=== PATIENT | female | born 1955 | race Caucasian/White ===

== ENCOUNTER 2023-07-30 10:31 | Outpatient (REF) | payer OTHER, MEDICARE, SELFPAY ==
[2023-07-30 14:23] LABS: Alanine Aminotransferase 23 U/L (0-31); Albumin Level 4.1 g/dL (3.5-5.0); Alkaline Phosphatase 85 U/L (39-117); Anion Gap 14 (12-20); Aspartate Amino Transferase 40 U/L (5-31); Bilirubin Direct 0.3 mg/dL (0.0-0.5); Bilirubin Total 0.7 mg/dL (0.0-1.0); Blood Urea Nitrogen 15 mg/dL (9-16); Carbon Dioxide 27 mmol/L (22-29); Chloride 103 mmol/L (96-108); Cholesterol 162 mg/dL (<200); Estimated Glomerular Filt Rate > 60; Glucose Fasting 86 mg/dL (60-99); HDL Cholesterol 78 mg/dL (>40); LDL Cholesterol Calculated 65 mg/dL (<100); Potassium 3.9 mmol/L (3.3-5.1); Sodium 140 mmol/L (135-145); Total Protein 7.4 g/dL (6.5-8.0); Triglycerides 99 mg/dL (<150)
== END 2023-07-30 10:32 | disposition home or self-care (01) ==
LOC: HO.CHCLDS 10:31
PROVIDERS: Visit Provider Student in an Organized Health Care Education/Training Program
DX: E78.5 Hyperlipidemia, unspecified (principal)
CPT/HCPCS: 36415; 80048; 80061; 80076

== ENCOUNTER 2024-03-11 11:31 | Outpatient (REF) | payer MEDICARE, SELFPAY ==
[2024-03-11 15:21] LABS: Alanine Aminotransferase 17 U/L (0-31); Albumin Level 3.9 g/dL (3.5-5.0); Alkaline Phosphatase 72 U/L (39-117); Anion Gap 14 (12-20); Aspartate Amino Transferase 32 U/L (5-31); Bilirubin Direct 0.2 mg/dL (0.0-0.5); Bilirubin Total 0.3 mg/dL (0.0-1.0); Blood Urea Nitrogen 12 mg/dL (9-16); Calcium 9.3 mg/dL (8.4-10.2); Carbon Dioxide 29 mmol/L (22-29); Chloride 102 mmol/L (96-108); Cholesterol 146 mg/dL (<200); Estimated Glomerular Filt Rate > 60; Glucose Random 126 mg/dL (60-115); HDL Cholesterol 75 mg/dL (>40); LDL Cholesterol Calculated 54 mg/dL (<100); Potassium 3.6 mmol/L (3.3-5.1); Sodium 141 mmol/L (135-145); Total Protein 7.5 g/dL (6.5-8.0); Triglycerides 86 mg/dL (<150)
== END 2024-03-11 11:32 | disposition home or self-care (01) ==
LOC: HO.CHCLDS 11:31
PROVIDERS: Visit Provider Student in an Organized Health Care Education/Training Program
DX: F10.20 Alcohol dependence, uncomplicated (principal)
CPT/HCPCS: 36415; 80048; 80061; 80076

== ENCOUNTER 2024-10-11 12:42 | Outpatient (REF) | payer MEDICARE, SELFPAY ==
[2024-10-11 14:17] LABS: MANUAL DIFF FLAG NO
[2024-10-11 14:29] LABS: Basophils Absolute Auto 0.1 X10*3/uL (0.0-0.2); Basophils Percent Auto 1.6 % (0-2); Eosinophils Percent Auto 0.4 % (0-4); Hematocrit 29.5 % (37.0-47.0); Hemoglobin 9.1 g/dl (12.0-16.0); Imm Gran Abs Auto 0.02 X10*3/uL (0.00-0.03); Imm Gran Pct Auto 0.3 % (0.0-0.4); Lymphocytes Absolute Auto 1.2 X10*3/uL (1.2-4.9); Mean Corpuscular HGB Conc 30.8 g/dl (31.0-35.0); Mean Corpuscular Hemoglobin 22.4 pg (27.0-33.0); Mean Corpuscular Volume 72.5 fL (80.0-98.0); Mean Platelet Volume 10.5 fL (9.4-12.3); Monocytes Percent Auto 12.5 % (2-11); Neutrophils Absolute Auto 5.4 x10*3/uL (2.0-8.3); Neutrophils Percent Auto 70.2 % (45-73); Platelet Count 394 X10*3/uL (160-400); Red Blood Count 4.07 X10*6/uL (4.20-5.50); Red Cell Distribution Width 18.1 % (11.0-16.0); White Blood Count 7.7 X10*3/uL (4.8-10.8)
[2024-10-11 15:03] LABS: Alanine Aminotransferase 20 U/L (0-31); Albumin Level 3.6 g/dL (3.5-5.0); Alkaline Phosphatase 77 U/L (39-117); Anion Gap 14 (12-20); Aspartate Amino Transferase 45 U/L (5-31); Bilirubin Total 0.3 mg/dL (0.0-1.0); Blood Urea Nitrogen 12 mg/dL (9-16); C Reactive Protein < 0.10 mg/dL (< or = 0.50); Calcium 9.1 mg/dL (8.4-10.2); Carbon Dioxide 31 mmol/L (22-29); Chloride 92 mmol/L (96-108); Estimated Glomerular Filt Rate > 60; Glucose Random 98 mg/dL (60-115); Iron 11 mcg/dL (30-160); Lactate Dehydrogenase 209 U/L (122-220); Percent Iron Saturation 3 % (15-50); Potassium 3.6 mmol/L (3.3-5.1); Sodium 133 mmol/L (135-145); TSH reflex Free T4 0.83 uIU/mL (0.32-4.0); Total Iron Binding Capacity 337 mcg/dL (228-428); Total Protein 6.7 g/dL (6.5-8.0); Unsaturated Iron Binding 326 ug/dL
[2024-10-11 15:09] LABS: Erythrocyte Sedimentation Rate 9 MM/HR (0-20)
[2024-10-11 15:22] LABS: Folate 9.2 ng/mL (> or = 4.0); Vitamin B12 > 2000 pg/mL (200-900)
[2024-10-12 08:29] LABS: HIV AB/AG Nonreactive (Nonreactive); HIV Num 1 0.05 S/CO (0.00-0.99)
== END 2024-10-11 12:43 | disposition home or self-care (01) ==
LOC: HO.CHCLDS 12:42
PROVIDERS: Visit Provider Family Medicine
DX: R63.4 Abnormal weight loss (principal); R62.7 Adult failure to thrive; M81.0 Age-related osteoporosis without current pathological fracture; R13.10 Dysphagia, unspecified
CPT/HCPCS: 36415; 80053; 82306; 82607; 82746; 83540; 83615; 84443; 85025; 85652; 86140; 87389

== ENCOUNTER 2024-12-29 09:16 | Outpatient (REF) | payer MEDICARE, SELFPAY ==
--- NOTE | ~2024-12-29 | FL_ITS ---
EXAMINATION: XR FLUOROSCOPY UPPER GI WITH AIR CLINICAL INFORMATION: Weight loss. COMPARISON: None TECHNIQUE: Fluoroscopic air contrast upper GI examination was performed utilizing standard techniques with thin and thick barium and effervescent granules. Numerous spot images were obtained. FINDINGS: Severe kyphosis of the spine is present. There is osteopenia with multiple chronic compression deformities. There is an eggshell type calcification in the region of the superior medial liver, uncertain in etiology. Dual and single contrast images of the esophagus demonstrate a normal caliber. There is an irregular short segment linear vertically oriented filling defect in the midesophagus. Just proximal to this, there is an inferiorly oriented mucosal ulceration. In addition there are multiple foci of contrast pooling in the mid and distal esophagus that may represents ulcerations. Esophageal peristalsis is moderately disorganized. No evidence of hiatus hernia identified. No significant gastroesophageal reflux was seen during the course of the examination and on reflux views. Dual contrast and single contrast images of the stomach demonstrate an elongated stomach with a normal contour. The gastric rugal folds have a thickened appearance suggestive of gastritis. No masses or ulcerations are seen. Contrast freely passed into the gastric antrum and duodenal bulb without delay. Single and air-contrast images of the duodenal bulb demonstrate no abnormality. The duodenal sweep has a normal appearance, course, and mucosal fold appearance. The imaged proximal jejunum has a normal fold pattern and caliber. FLUOROSCOPY TIME: 5 minutes 23 seconds Number of Spot Images: 5 Number of Cine: 17 DOSE AREA PRODUCT: 1170 uGy-m2 (microgray-meter squared) FL/FL barium swallow with air IMPRESSION: 1. Limited examination due to patient's severe kyphosis, and inability to tolerate positioning for the exam. 2. Irregular linear vertically oriented filling defect is seen in the midesophagus of unknown etiology. An ulcerated mucosal mass cannot be excluded. An unusual presentation of gastritis or thrush is also a possibility. Just proximal to this, there is a small dorsally oriented mucosal/submucosal ulceration. 3. Multiple focal areas of contrast pooling in the mid and distal esophagus that may represent ulcerations. 4. Elongated stomach. The gastric rugal folds have a thickened appearance, suggestive of gastritis. 5. Moderate esophageal dysmotility. 6. Given the above findings, EGD is recommended. This procedure was performed by En Trivedi PA-C, and supervised by Dr. Doe Electronically signed by: Ajith Doe MD 12/30/2024 09:07 AM KERI AYALA
--- OUTSIDE RECORDS SUMMARY | 2024-12-29 10:17 | XMS_ITS | Encounter Summary ---
Author Organization 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 Role Phone Becca Forbes MD Primary Care Provider [phone] Reason for Visit * Reason Onset Date Comments Med Refill 12/24/2024 Encounter Details Date Type Department Care Team ([facility] st Contact Info) Description 12/24/2024 Refill [facility] [address] [place] [address] Becca Forbes MD [address] [place], [place] [id number] Social History Tobacco Use Types Packs/Day Years Used Date Smoking Tobacco: Every Day Cigarettes Smokeless Tobacco: Never Alcohol Use Standard Drinks/Week Comments Yes 12 (1 standard drink = 0.6 oz pu re alcohol) Housing Stability Answer Date Recorded What is your housing situation today? I have sulema ahumada 12/27/[address] you li ve. Do you have problems with any of the following? Not on file 12/27/2024 Food Insecurity Answer Date Recorded Within the past 12 months, y ou worried that your food would run out before you got money to buy more: Never True 09/11/2023 Within the past 12 months,th e food you bought just didn't last and you didn't have enough money to get more: Never True Transportation Answer Date Recorded In the past 12 months, has l ack of transportation kept you from medical appts, meetings, work or from getting things needed for daily living? No 09/11/2023 Utilities Answer Date Recorded In the past 12 months, has t he electric, gas, oil or water company threatened to shut off services in your home? No 09/11/2023 Comments No Sex and Gender Information Value Date Recorded Sex Assigned at Female 09/16/2022 10:27 AM EDT Legal Sex Female 10:27 AM EDT Gender Identity Female 09/16/2022 10:27 AM EDT Sexual Orientation Straight 09/16/2022 10 :27 AM EDT documented as of this encounter Miscellaneous Notes * Telephone Encounter - Alpesh Apodaca - 12/24/2024 3:31 PM EST TC from pt requesting medication refill. Medications needing refill : omeprazole (PriLOSEC) [address] capsule atorvastatin (Lipitor) 40 MG tablet cholecalciferol (Vitamin D-3) 25 MCG tablet To be sent to: [facility] - [place] - [address] [place] [address] documented in this encounter Plan of Treatment Upcoming Encounters Date Type Department Care Team (Late st Contact Info) Description 01/06/2025 9:30 AM EST Telemedicine [facility] [address] [place] [address] [place] [address] documented as of this encounter Visit Diagnoses Not on filedocumented in this encounter Care Teams Roof Cement And Paint Maker Relationship Specialty Start Date End Date Becca Forbes MD [address] [place] [address] PCP - General Family Medicine 06/30/20 documented as of this encounter
--- OUTSIDE RECORDS SUMMARY | 2024-12-29 10:17 | XMS_ITS | Clinical Summary ---
Author Organization [facility] Address [address] [place] [address] Phone Care Team Providers Care Heddler Name Role Phone SHARAD MARCH Primary Care Provider [phone] [facility] Unavailable [phone] Reason for Visit and Chief Complaint Established Patient Plan of Treatment Pending Tests Order Diagnosis Results Due Ordering P rovider Follow Up - Appointment 6 weeks Colles' fx left radius, subs for clos fx w routn heal 02/04/23 Teddy Kwon MD Last Documented On 3 10:06AM ; [facility] Assessments Includes: Assessments from this encounter No Assessments Recorded Medical Equipment - Implanted Devices Includes: Current Devices No Medical Equipment Recorded Medications Includes: Medications discussed during this encounter and other current Medications Current Medications (continue as prescribed) percocet [MANUAL] Oral Tablet 04/03/2023 Provider: Diagnosis: Last Documented On 3 10:57AM By Kamran Campa ; [facility] Medications Administered Includes: Administered Medications from this encounter No Administered Medications Recorded Vital Signs Includes: Vital Signs from this encounter Vital Name 02/04/2023 09:55A Blood Pressure Sitting (mmHg) 141/94 Pulse Rate-Sitting (bpm) 41 Temp-Temporal 98.1 Height (in) 59 Weight (lb) 75.8 Body Mass Index 15.3 Body Surface Area 1.2 Oxygen Saturation (%) 89 Last Documented: On 02/04/2023 9:56AM ; [facility] Results Includes: Results discussed during this encounter No Results Recorded For Specified Dates History of Present Illness Includes: History of Present Illness from this encounter No History of Present Illness Recorded Social History No Social History Recorded - Smoking Status Unknown Medical History Includes: Medical History addressed during this encounter No Medical History Recorded Family History Includes: Family History addressed during this encounter No Family History Recorded Review of Systems Includes: Review of Systems from this encounter No Review of Systems Recorded Mental Status Includes: Mental Status from this encounter No Mental Status Recorded Functional Status Includes: Functional Status from this encounter No Functional Status Recorded Physical Exam Includes: Physical Exam from this encounter Allergies Includes: Active Allergies No Known Allergies Encounters Encounter Provider Location Date Check-In Time Check-Out Time Diagnosis Established Patient [facility]won [facility] 02/05/20 10:00AM 10:09AM Insurance Includes: Active Insurance Policies Plan Name Member ID Group # Subscriber Relationship Effect ruma Dates 1 - [employer] [id number] Esperanza Talamantes Self 2 - Medicare Part [place] [id number] Esperanza Talamantes Self 3 - [facility] [id number] Esperanza Pastor Clinical Notes Includes: Clinical Notes from this encounter * Progress note Date Encounter Last Documented by 02/04/2023 Established Patient Last anthony vergara on 02/04/2023; 10:06 AM, Teddy Kwon MD; [facility] Current Medication - None Allergies - No Known Allergies Physical Findings - Vitals taken 02/04/2023 09:55 am BP-Sitting 141/94 mmHg Pulse Rate-Sitting 41 bpm Temp-Temporal 98.1 F Height 59 in Weight 75 lbs 12.8 oz Body Mass Index 15.3 kg/m2 Body Surface Area 1.2 m2 Oxygen Saturation 89 % Chief complaint: Follow-up fracture left distal radius and ulna History of Present Illness: This is a 67-year-old woman who was treated nonsurgically for a fracture of her left distal radius and ulna sustained on 10/09/2022. She was last seen on 12/23/2022. Her splint was discontinued at that time. I prescribed occupational therapy to assist with range of motion and advised her to be assertive with those exercises. She was quite stiff at that time. She has no complaints today. She presents with her daughter. She reports that she is going to physical therapy. I still think she could be more aggressive with her range of motion exercises. Physical exam: She is still fairly stiff but has improved quite a bit since the last visit. Today after some gentle stretching she is able to achieve almost full flexion of her digits. Her wrist extension is now about 25 degrees with flexion 45 degrees, supination 70 degrees, and pronation 60 degrees. Imaging: None today Impression: Fracture left distal radius and ulna Plan: I encouraged the patient to be aggressive with her range of motion exercises and to continue with her physical therapy. I advised her daughter to attend therapy with her so that she can help with the range of motion exercises at home. I asked the patient to return in 6 weeks for reexamination of her wrist. No radiographs will be necessary. Plan StartCited - Shon fx left radius, subs for yanick fx w routn heal Follow Up/Appointment: 6 weeks EndCited
--- OUTSIDE RECORDS SUMMARY | 2024-12-29 10:17 | XMS_ITS ---
Author Name Reji FRANCESCA MS. Xiao Tripathi Address [address] [place] [address] Phone [phone] [facility] Care Team Providers Care Valve Tester Name Role Phone Xiao Mendoza Unavailable [phone] Unavailable Unavailable Unavailable Reason for Referral Not Available Allergies, adverse reactions, alerts Allergen Type Reaction Severity Status Onset Date [place] Pass[place] Fruit OS Allergy to substance (disorder) Lip edema, facial edema Unknown Active N/A Propranolol Allergy to substance (disorder) Yeast infection w/ blistering Unknown Active N/A History of medication use Medication Class Instructions Start Date End Date Omeprazole 20 mg Cap delayed rel TAKE TWO CAPSULES EVERY DAY BEFORE MEALS 2022-03-06 No Data Available Alendronate Sodium 70 mg Tab TAKE 1 TABL ET ONCE A WEEK WITH 6 TO 8 OZ OF WATER 30 MINUTES BEFORE FIRST FOOD OF THE DAY. DO NOT LIE DOWN FOR 30 MINUTES. 2021-12-06 No Data Available SM All Day Allergy Relief 10 mg Tab TAKE ONE TABLET DAILY 2021-08-09 No Data Available MULTIVITAMIN TABLET TAKE ONE TABLET DAILY 2021-12-06 No Data Available Symbicort 80-4.5 MCG/ACT Aerosol INHALE TWO PUFFS TWICE DAILY IN THE MORNING AND AT BEDTIME, RINSE MOUTH AFTER USE 2022-07-18 2023-07-25 Albuterol Sulfate HFA 108 (9 0 Base) MCG/ACT Aerosol Solution INHALE TWO PUFFS EVERY 4 HOURS NEEDED FOR WHEEZING 2022-01-23 No Data Available ascorbic acid (vitamin C) 25 0 mg tablet TAKE ONE TABLET TWICE DAILY 2022-01-23 No Data Available Aspirin Low Dose 81 mg Tab delayed rel TAKE ONE TABLET DAILY 2022-07-18 No Data Available Atorvastatin Calcium 40 mg Tab TAKE ONE TABLET BY MOUTH EVERY DAY 2022-07-17 No Data Available cholecalciferol (vitamin D3) 25 mcg (1,000 unit) tablet TAKE ONE TABLET DAILY 2022-07-18 No Data Lisa ilable cyanocobalamin (vit B-12) 1,000 mcg tablet TAKE ONE TABLET DAILY 2022-07-18 No Data Available Aspirin EC 81 mg Tab delayed rel take 1 tablet by mouth daily 2022-12-17 No Data Available Lidocaine 5 % Patch 1 patch topically to affected area daily remove after 12 hours PRN Pain 2022-12-17 No Data Available Capsaicin 0.025 % Crm USE topically N EEDED FOR muscle PAIN 2023-02-11 No Data Available Acetaminophen-Codeine 120/12 mg/5ML Solution TAKE FIVE ml's BY MOUTH TWICE DAILY 2023-03-13 No Data Available M-PAP 160 mg/5ML Liquid TAKE 15 ml's BY MOUTH TWICE DAILY 2023-03-13 No Data Available Daily-Lora Tab TAKE ONE TABLET DAILY 2023-01-17 No D eitan Available Alclometasone Dipropionate 0.05 % Crm 1 application topically to affected area 2 times per day 2023-07-25 No Data Available Symbicort 160-4.5 MCG/ACT Aerosol Inhalation inhale 2 puffs by mouth twice daily 2023-03-21 No Data Available Ferrous Gluconate 324 (37.5 Fe) MG Tab TAKE ONE TABLET EVERY MORNING WITH BREAKFAST 2024-10-12 No Data Available Silver sulfADIAZINE 1 % Crm APPLY TO THE AFFECTED AREA(S) TWICE DAILY 2024-12-27 No Data Available Problem List Problem Status Onset Date Resolved Date Peripheral vascular disease, unspecified Active 2022-12-17 N/A H/O malignant neoplasm of breast Active N/A H/O fracture Active 2022-12-17 N/A Underweight Resolved 2022-12-19 2023-12-05 Protein calorie malnutrition Inactive 2022-12-19 N/A History of alcoholism/alcohol abuse Active 12-20 N/A Absence of toe Active 2023-12-12 N/A Rheumatoid arthritis Active 2024-11-26 N/A Scoliosis and Acquired kyphosis Active 2024-11-17 0 N/A Vitamin B12 deficiency neuropathy Active 2024-11 N/A 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 2024-11-26 N/A H/O deep venous thrombosis Active 2022-12-17 N /A GERD (gastroesophageal reflux disease) Active 09-12-30 N/A Hyperlipidemia Active 2022-12-17 N/A Advance directive discussed with patient Active 2024-11-26 N/A Age related osteoporosis Active 2022-12-17 N/A Chronic obstructive pulmonary disease, unspecified Act ruma 2022-12-17 N/A Protein malnutrition & Adult failure to thrive and 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 Active 2024-11-26 N/A Other problems related to [facility] facilities and other health care Active 2024-11-26 N/A Pressure ulcer of coccygeal region Active 1-10 N/A Encounters Encounters Type Facility Date of Service Diagnosis/Co mplaint New patient,40-59min; chronic exacerbation, 2 stable chronic or 1 acute illness add add modifier 95 for video (do not use for phone, instead use [id number]) [facility]22 Age-related osteoporosis without current pathological fractureHyperlipidemia, unspecifiedGastro-esophageal reflux disease without esophagitisPersonal history of malignant neoplasm of breastPeripheral vascular disease, unspecifiedPersonal history of other venous thrombosis and embolismChronic obstructive pulmonary disease, unspecifiedNicotine dependence, unspecified, uncomplicatedPersonal history of (healed) traumatic fractureUnderweightUnspecified protein-calorie malnutritionBody mass index (BMI) 19 or less, adultAlcohol dependence, in remission New patient,40-59min; chronic exacerbation, 2 stable chronic or 1 acute illness add add modifier 95 for video (do not use for phone, instead use [id number]) [facility] [place] New patient,40-59min; chronic exacerbation, 2 stable chronic or 1 acute illness add add modifier 95 for video (do not use for phone, instead use [id number]) [facility] [place] 12/[place]/20[place] New patient,40-59min; chronic exacerbation, 2 stable chronic or 1 acute illness add add modifier 95 for video (do not use for phone, instead use [id number]) [facility] [place] New patient,40-59min; chronic exacerbation, 2 stable chronic or 1 acute illness add add modifier 95 for video (do not use for phone, instead use [id number]) [facility] ([place]17/[place] New patient,40-59min; chronic exacerbation, 2 stable chronic or 1 acute illness add add modifier 95 for video (do not use for phone, instead use [id number]) [facility] [place] New patient,40-59min; chronic exacerbation, 2 stable chronic or 1 acute illness add add modifier 95 for video (do not use for phone, instead use [id number]) [facility] [place]/20[place] New patient,40-59min; chronic exacerbation, 2 stable chronic or 1 acute illness add add modifier 95 for video (do not use for phone, instead use [id number]) [facility] [place]/2022 No Data Available [facility] [place]2023 Age-related osteoporosis without current pathological fractureHyperlipidemia, unspecifiedGastro-esophageal reflux disease without esophagitisPersonal history of malignant neoplasm of breastPeripheral vascular disease, unspecifiedPersonal history of other venous thrombosis and embolismChronic obstructive pulmonary disease, unspecifiedNicotine dependence, unspecified, uncomplicatedPersonal history of (healed) traumatic fractureUnderweightUnspecified protein-calorie malnutritionAlcohol dependence, in remissionBody mass index (BMI) 19 or less, adult No Data Available [facility] Data [place] [facility] Data Available [facility] Data Available [facility] No Data Available [facility] No Data Available [facility] No Data Available [facility]2023 Age-related osteoporosis without current pathological fractureHyperlipidemia, unspecifiedGastro-esophageal reflux disease without esophagitisPersonal history of malignant neoplasm of breastPeripheral vascular disease, unspecifiedPersonal history of other venous thrombosis and embolismChronic obstructive pulmonary disease, unspecifiedNicotine dependence, unspecified, uncomplicatedPersonal history of (healed) traumatic fractureUnderweightUnspecified protein-calorie malnutritionBody mass index (BMI) 19 or less, adultAlcohol dependence, in remission No Data Available [facility] [place] 07[place]2023 No Data Available [facility] [place]2023 No Data Available [facility] [place] No Data Available [facility] [place] No Data Available [facility] [place] No Data Available [facility] [place]2023 Peripheral vascular disease, unspecifiedChronic obstructive pulmonary disease, unspecifiedUnspecified protein-calorie malnutritionAlcohol dependence, in remissionAge-related osteoporosis without current pathological fractureHyperlipidemia, unspecifiedGastro-esophageal reflux disease without esophagitisPersonal history of malignant neoplasm of breastPersonal history of other venous thrombosis and embolismNicotine dependence, unspecified, uncomplicatedPersonal history of (healed) traumatic fractureUnderweight No Data Available [facility] [place] 09[place]03[place]2023 No Data Available [facility] [place]2023 Age-related osteoporosis without current pathological fractureHyperlipidemia, unspecifiedGastro-esophageal reflux disease without esophagitisPersonal history of malignant neoplasm of breastPeripheral vascular disease, unspecifiedPersonal history of other venous thrombosis and embolismChronic obstructive pulmonary disease, unspecifiedNicotine dependence, unspecified, uncomplicatedPersonal history of (healed) traumatic fractureUnderweightUnspecified protein-calorie malnutritionAlcohol dependence, in remissionOther problems related to medical facilities and other health care No Data Available [facility] [place]2023 No Data Available [facility] [place] No Data Available [facility] [place]20[place] Estab. patient 30-39min; chronic exacerbation, 2 stable chronic or 1 acute illness add add modifier 95 for video, (do not use for phone, instead use [id number]) [facility] [place]2023 Gastro-esophageal reflux disease without esophagitisPeripheral vascular disease, unspecifiedPersonal history of other venous thrombosis and embolismAlcohol dependence, in remissionChronic obstructive pulmonary disease, unspecifiedNicotine dependence, unspecified, uncomplicatedPersonal history of (healed) traumatic fracture Estab. patient 30-39min; chronic exacerbation, 2 stable chronic or 1 acute illness add add modifier 95 for video, (do not use for phone, instead use [id number]) [facility] [place]20[place] Estab. patient 30-39min; chronic exacerbation, 2 stable chronic or 1 acute illness add add modifier 95 for video, (do not use for phone, instead use [id number]) [facility] [place]/2023 Estab. patient 30-39min; chronic exacerbation, 2 stable chronic or 1 acute illness add add modifier 95 for video, (do not use for phone, instead use [id number]) [facility] [place]2023 Estab. patient 30-39min; chronic exacerbation, 2 stable chronic or 1 acute illness add add modifier 95 for video, (do not use for phone, instead use 51525-36) [facility] [place] 12[place]05/2023 Estab. patient 30-39min; chronic exacerbation, 2 stable chronic or 1 acute illness add add modifier 95 for video, (do not use for phone, instead use [id number]) [facility] [place] Estab. patient 30-39min; chronic exacerbation, 2 stable chronic or 1 acute illness add add modifier 95 for video, (do not use for phone, instead use 23431-53) [facility] [place] Estab. patient 30-39min; chronic exacerbation, 2 stable chronic or 1 acute illness add add modifier 95 for video, (do not use for phone, instead use [id number]) [facility] [place] Estab. patient 20-29min; 1 stable chronic or 2 minor; add add modifier 95 for video, modifier 93 for phone [facility] [place] 11/26/2024 Age-related osteoporosis without current pathological fractureHyperlipidemia, unspecifiedGastro-esophageal reflux disease without esophagitisPersonal history of malignant neoplasm of breastPeripheral vascular disease, unspecifiedPersonal history of other venous thrombosis and embolismChronic obstructive pulmonary disease, unspecifiedNicotine dependence, unspecified, uncomplicatedPersonal history of (healed) traumatic fractureAlcohol dependence, in remissionAcquired absence of other toe(s), unspecified sidePressure ulcer of sacral region, unspecified stageUnspecified protein-calorie malnutritionAdult failure to thrive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Deficiency of other specified B group vitaminsSubac comb degeneration of spinal cord in dis classd elswhrPolyneuropathy in diseases classified elsewhereScoliosis, unspecifiedUnspecified kyphosis, site unspecifiedRheumatoid arthritis, unspecifiedOther problems related to medical facilities and other health care Estab. patient 20-29min; 1 stable chronic or 2 minor; add add modifier 95 for video, modifier 93 for phone [facility] Estab. patient 20-29min; 1 stable chronic or 2 minor; add add modifier 95 for video, modifier 93 for phone [facility]/26/20[place] Estab. patient 20-29min; 1 stable chronic or 2 minor; add add modifier 95 for video, modifier 93 for phone [facility]/26[place]20[place] Estab. patient 20-29min; 1 stable chronic or 2 minor; add add modifier 95 for video, modifier 93 for phone [facility]/26/20[place] Estab. patient 20-29min; 1 stable chronic or 2 minor; add add modifier 95 for video, modifier 93 for phone [facility]/26/2024 Estab. patient 20-29min; 1 stable chronic or 2 minor; add add modifier 95 for video, modifier 93 for phone [facility]/26/20[place] Estab. patient 20-29min; 1 stable chronic or 2 minor; add add modifier 95 for video, modifier 93 for phone [facility]/26/2024 Estab. patient 20-29min; 1 stable chronic or 2 minor; add add modifier 95 for video, modifier 93 for phone [facility] [place]/26/2024 Estab. patient 10-29min; 1 minor problem; add add modifier 95 for video, modifier 93 for phone [facility] [place] 12[place]/2024 Age-related osteoporosis without current pathological fractureOther problems related to medical facilities and other health careHyperlipidemia, unspecifiedGastro-esophageal reflux disease without esophagitisPersonal history of malignant neoplasm of breastPeripheral vascular disease, unspecifiedPersonal history of other venous thrombosis and embolismChronic obstructive pulmonary disease, unspecifiedNicotine dependence, unspecified, uncomplicatedPersonal history of (healed) traumatic fractureAlcohol dependence, in remissionAcquired absence of other toe(s), unspecified sidePressure ulcer of sacral region, unspecified stageUnspecified protein-calorie malnutritionAdult failure to thrive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Deficiency of other specified B group vitaminsSubac comb degeneration of spinal cord in dis classd elswhrPolyneuropathy in diseases classified elsewhereScoliosis, unspecifiedUnspecified kyphosis, site unspecifiedRheumatoid arthritis, unspecifiedBody mass index (BMI) 19 or less, adult Vital Signs Date of Collection Vitals 2022-12-17 13:41:03 Height - 147.32 cmWe ight - 33.57 kgBody Mass Index (BMI) - 15.47 kg/m2 2023-06-09 13:19:27 Height - 142.24 cmWe ight - 31.3 kgBody Mass Index (BMI) - 15.47 kg/m2BP Diastolic - 72.0 mm[Hg]BP Systolic - 126.0 mm[Hg]O2 % BldC Oximetry - 99.0 %Pain Scale - 0.0 {score} 2023-07-25 09:02:28 BP Diastolic - 72.0 mm[Hg]BP Systolic - 126.0 mm[Hg]Pain Scale - 0.0 {score} 2023-12-05 07:47:06 Height - 129.54 cmWe ight - 33.57 kgBody Mass Index (BMI) - 20.0 kg/m2Pain Scale - 8.0 {score} 2024-11-26 07:25:29 Height - 149.86 cmWe ight - 27.22 kgBody Mass Index (BMI) - 12.12 kg/m2BP Diastolic - 80.0 mm[Hg]BP Systolic - 137.0 mm[Hg]Pain Scale - 8.0 {score} 2024-12-28 12:24:29 Height - 129.54 cmWe ight - 27.67 kgBody Mass Index (BMI) - 16.49 kg/m2 Social History Social History Social History Observation Description Effec tive Time Current Smoking Status Current every day smoker 2024-12-29 Sex Female History of Procedures Procedures Service Procedure code Service date Servicing provider Phone# New patient,40-59min; chronic exacerbation, 2 stable chronic or 1 acute illness add add modifier 95 for video (do not use for phone, instead use [id number]) 13521 2022-12-17 No Data Available No Data Availa ble Pain Assessment - NO pain present (1126F) 1126F 2022-12-17 No Data Available No Data A vailable Medication List Documented (1159F) 1159F 2022-12-17 No Data Available No Data Lisa ilable Medication Review by prescribing provider or pharmacist documented (1160F) 1160F 2022-12-17 No Data Available No Data Lisa ilable Functional Status Assessed (1170F) 1170F 2022-12-17 No Data Available No Data Avail able Advance Care Directive Advance care planning discussion documented in the medical record (1158F) 1158F 2022-12-17 No Data Available No Data Availa ble BMI obtained (3008F) 3008F 2022-12-17 No Data Availab le No Data Available Pain Assessment - Pain Documented on a Pain Scale (1125F) 1125F 2022-12-17 No Data Available No Data Lisa ilable No Data Available [id number] 2023-06-09 No Data Available No Data Available Pain Assessment - NO pain present (1126F) 1126F 2023-06-09 No Data Available No Data A vailable SBP < 130 (3074F) 3074F 2023-06-09 No Data Available No Data Available DBP <80 (3078F) 3078F 2023-06-09 No Data Available No Data Available Advance care planning discussed and documented ? advance care plan or surrogate decision-maker was documented in the medical record. (1123F) 1123F 2023-06-09 No Data Available No Data Availa ble Medication List Documented (1159F) 1159F 2023-06-09 No Data Available No Data Lisa ilable BMI obtained (3008F) 3008F 2023-06-09 No Data Availab le No Data Available No Data Available 27095 2023-07-25 No Data Available No Data Available Medication List Documented (1159F) 1159F 2023-07-25 No Data Available No Data Lisa ilable Pain Assessment - NO pain present (1126F) 1126F 2023-07-25 No Data Available No Data A vailable Advance Care Directive Advance care planning discussion documented in the medical record (1158F) 1158F 2023-07-25 No Data Available No Data Availa ble SBP < 130 (3074F) 3074F 2023-07-25 No Data Available No Data Available DBP <80 (3078F) 3078F 2023-07-25 No Data Available No Data Available No Data Available [id number] 2023-09-03 No Data Available No Data Available Medication List Documented (1159F) 1159F 2023-09-03 No Data Available No Data Lisa ilable No Data Available [id number] 2023-10-20 No Data Available No Data Available Advance Care Directive Advance care planning discussion documented in the medical record (1158F) 1158F 2023-10-20 No Data Available No Data Availa ble Medication List Documented (1159F) 1159F 2023-10-20 No Data Available No Data Lisa ilable Functional Status Assessed (1170F) 1170F 2023-10-20 No Data Available No Data Avail able Estab. patient 30-39min; chronic exacerbation, 2 stable chronic or 1 acute illness add add modifier 95 for video, (do not use for phone, instead use [id number]) 78427 2023-12-05 No Data Available No Data Availa ble Medication List Documented (1159F) 1159F 2023-12-05 No Data Available No Data Lisa ilable Medication Review by prescribing provider or pharmacist documented (1160F) 1160F 2023-12-05 No Data Available No Data Lisa ilable Pain Assessment - Pain Documented on a Pain Scale (1125F) 1125F 2023-12-05 No Data Available No Data Lisa ilable BMI obtained (3008F) 3008F 2023-12-05 No Data Availab le No Data Available Advance Care Directive Advance care planning discussion documented in the medical record (1158F) 1158F 2023-12-05 No Data Available No Data Availa ble Advance care planning discussed and documented ? advance care plan or surrogate decision-maker was documented in the medical record. (1123F) 1123F 2023-12-05 No Data Available No Data Availa ble Functional Status Assessed (1170F) 1170F 2023-12-05 No Data Available No Data Avail able Estab. patient 20-29min; 1 stable chronic or 2 minor; add add modifier 95 for video, modifier 93 for phone [id number] 2024-11-26 No Data Available No Data Availa ble Medication List Documented (1159F) 1159F 2024-11-26 No Data Available No Data Lisa ilable Medication Review by prescribing provider or pharmacist documented (1160F) 1160F 2024-11-26 No Data Available No Data Lisa ilable Functional Status Assessed (1170F) 1170F 2024-11-26 No Data Available No Data Avail able Pain Assessment - Pain Documented on a Pain Scale (1125F) 1125F 2024-11-26 No Data Available No Data Lisa ilable Advance Care Directive Advance care planning discussion documented in the medical record (1158F) 1158F 2024-11-26 No Data Available No Data Availa ble Advance care planning discussed and documented ? advance care plan or surrogate decision-maker was documented in the medical record. (1123F) 1123F 2024-11-26 No Data Available No Data Availa ble SBP < 130 (3074F) 3074F 2024-11-26 No Data Available No Data Available DBP <80 (3078F) 3078F 2024-11-26 No Data Available No Data Available Estab. patient 10-29min; 1 minor problem; add add modifier 95 for video, modifier 93 for phone [id number] 2024-12-28 No Data Available No Data Availa ble Functional Status Functional Category Effective Dates ADL: Bathing Needs Assistanc e , Dressing Needs Assistance , Eating Independent , Ambulation Needs Assistance , Transferring Needs Assistance and Toileting Needs Assistance 2024-11-26 IADL: Medication Needs Jennifer tance , Meal Prep Needs Assistance , Shopping Needs Assistance , Driving or Public Transport Needs Assistance , Housework Needs Assistance , Finances Needs Assistance 2024-11-26 Near falls within the last 6 months? Non e 2024-11-26 Do you worry about falling? No 2024-11-17 0 Do you feel unsteady on your feet? No 11-12-09 DME used with ambulation: [employer] 2024-11-26 Social Supports - # of Inter actions with Friends/Family in a typical week: 2024-11-26 How many falls within the last 6 months? None 2024-11-26 Mental Status Status Date Cognition Status: Oriented to Person, Pl derik and Time 2024-11-26 Assessments Date of Service Assessments 2022-12-17 13:41:03 Age related osteopor osisHyperlipidemiaGERD (gastroesophageal reflux disease)H/O malignant neoplasm of breastPeripheral vascular disease, unspecifiedH/O deep venous thrombosisChronic obstructive pulmonary disease, unspecifiedH/O fractureUnderweightProtein calorie malnutritionHistory of alcoholism/alcohol abuse 2023-06-09 13:19:27 Age related osteopor osisHyperlipidemiaGERD (gastroesophageal reflux disease)H/O malignant neoplasm of breastPeripheral vascular disease, unspecifiedH/O deep venous thrombosisChronic obstructive pulmonary disease, unspecifiedH/O fractureUnderweightProtein calorie malnutritionHistory of alcoholism/alcohol abuse 2023-07-25 09:02:28 Age related osteopor osisHyperlipidemiaGERD (gastroesophageal reflux disease)H/O malignant neoplasm of breastPeripheral vascular disease, unspecifiedH/O deep venous thrombosisChronic obstructive pulmonary disease, unspecifiedH/O fractureUnderweightProtein calorie malnutritionHistory of alcoholism/alcohol abuse 2023-09-03 12:40:26 Age related osteopor osisHyperlipidemiaGERD (gastroesophageal reflux disease)H/O malignant neoplasm of breastPeripheral vascular disease, unspecifiedH/O deep venous thrombosisChronic obstructive pulmonary disease, unspecifiedH/O fractureUnderweightProtein calorie malnutritionHistory of alcoholism/alcohol abuse 2023-10-20 10:25:05 Age related osteopor osisHyperlipidemiaGERD (gastroesophageal reflux disease)H/O malignant neoplasm of breastPeripheral vascular disease, unspecifiedH/O deep venous thrombosisChronic obstructive pulmonary disease, unspecifiedH/O fractureUnderweightProtein calorie malnutritionHistory of alcoholism/alcohol abuseOther problems related to medical facilities and other health care 2023-12-05 07:47:06 Age related osteopor osisHyperlipidemiaGERD (gastroesophageal reflux disease)H/O malignant neoplasm of breastPeripheral vascular disease, unspecifiedH/O deep venous thrombosisChronic obstructive pulmonary disease, unspecifiedH/O fractureHistory of alcoholism/alcohol abuseOther problems related to medical facilities and other health careColon cancer screeningAbsence of toe 2024-11-26 07:25:29 Age related osteopor osisHyperlipidemiaGERD (gastroesophageal reflux disease)H/O malignant neoplasm of breastPeripheral vascular disease, unspecifiedH/O deep venous thrombosisChronic obstructive pulmonary disease, unspecifiedH/O fractureHistory of alcoholism/alcohol abuseAbsence of toePressure ulcer of coccygeal regionProtein malnutrition & Adult failure to thrive and 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Subacute combined degeneration of spinal cordVitamin B12 deficiency neuropathyScoliosis and Acquired kyphosisRheumatoid arthritisOther problems related to medical facilities and other health care 2024-12-28 12:24:29 Age related osteopor osisOther problems related to medical facilities and other health careHyperlipidemiaGERD (gastroesophageal reflux disease)H/O malignant neoplasm of breastPeripheral vascular disease, unspecifiedH/O deep venous thrombosisChronic obstructive pulmonary disease, unspecifiedH/O fractureHistory of alcoholism/alcohol abuseAbsence of toePressure ulcer of coccygeal regionProtein malnutrition & Adult failure to thrive and 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Subacute combined degeneration of spinal cordVitamin B12 deficiency neuropathyScoliosis and Acquired kyphosisRheumatoid arthritisAdvance directive discussed with patient Plan of Care Date of Service Plans 2022-12-17 13:41:03 Medication Review by prescribing provider or pharmacist documented (1160F)Medication List Documented (1159F)Functional Status Assessed (1170F)Advance Care Directive Advance care planning discussion documented in the medical record (1158F)BMI obtained (3008F)Televideo new patient,40-59min; chronic exacerbation, 2 stable chronic or 1 acute illness add modifier 95Pain Assessment - Pain Documented (1125F)Continue to see PCP. Follow-up with [facility] as needed for any acute or disease education needs that may arise.StableAlendronate, Vit D3 supplementContinue taking medication, avoid falls, fall risk precautions, contact us if injury r/t fall occurs and continue f/u care w/ PCP y2pnxbekPxqbgfRamgqrshdorw Continue taking medication, diet and exercise, and continue f/u care w/ PCP i2izqiycPfqpxxStafjiayufCavybvuw taking medication, diet interventions, and contact us if developing GI s/sxStableMalignant neoplasm of upper-outer quadrant of right female breast Surgery 12/2019 and 6 weeks of radiotherapy F/u oncology visits m0sgzcnoRzvqgoQbykilcwbke stockings, elevate legs, monitor for pain and changes to skin, and continue f/u care w/ loader engineer h0zojatuLwlbhqCbrguub, AtorvastatinPatient reports most recent DVT in right leg in 2012Continue taking medications, monitor for swelling, pain, or erythema in BLE, diet and exercise, and contact us if any of the above mentioned s/sx occurStableAdvair, Albuterol Continue taking medication as prescribed, reviewed DMI usage, encourage smoking cessation and contact us if developing respiratory distress s/sx (eg. SOB)StableLeft-femur (2021), Left wrist (2021), Collapsed vertebrae (2020)Discussed fall risk precautions, benefits of continual physical therapy, and Continue f/u care and monitoring [id number] with orthopedic and PCPBMI: 15.47Encourage improvement of nutritional intake to increase BMI to normal weight range and continue f/u care w/ PCP z1hgtaonNauozbSbyocdwlc of high protein diet, nutritional interventions, and continue f/u care w/ PCP f1gzpkfdKjdqjnh Care ([facility] Progress note) notes member does have a diagnosis that includes Alcoholism/alcohol abuseEncourage continues abstinence from alcoholcontinues to take B12 supplement daily, ascorbic acid twice daily, MVI daily 2023-06-09 13:19:27 Phone (patient, pare nt, or guardian); 5-10 minutes of medical discussion (no modifier 95)SBP < 130 (3074F)DBP <80 (3078F)Pain Assessment - NO pain documented (1126F)Advance care planning discussed and documented ? advance care plan or surrogate decision-maker was documented in the medical record. (1123F)Continue to see PCP. Follow-up with [facility] as needed for any acute or disease education needs that may arise 09/06.StableAlendronate, Vit D3 supplementContinue taking medication, avoid falls, fall risk precautions, contact us if injury r/t fall occurs and continue f/u care w/ PCP [id number] TIPS for Bone Health: If you smoke, quit smoking (this will contribute to bone loss). Avoid ETOH. Ecouraged weight-bearing exercises, such as walking, and climbing stairs, can help you build strong bones and slow bone loss. Add good sources of calcium- dairy products, almonds, broccoli, kale, canned salmon with bones, sardines and soy products, such as tofu. If you are vit D deficient; take Vit D3 daily 2,000 IU-5,000 IU.StableAtorvastatin Continue taking medicationStableOmeprazoleRecommend famotidine 20 mg twice daily as needed for dyspepsia-- Smoking cessation encouranged-- Dietary and life style changes encouraged-- Calcium/Vit D and osteoporosis surveillance stressed-- Risk of group home PPI use discussed-- Antireflux diet: avoid tomatoes, citrus fruits, carbonated or caffeinated beverages, chocolate, peppermints, fatty foods.-- Elevate head of bed 6 on a brick or telephone book-- Do not eat within 4 hours of bedtime-- Strict diabetic monitoring and managementStableMalignant neoplasm of upper-outer quadrant of right female breast Surgery 12/2019 and 6 weeks of radiotherapy F/u oncology visits i3wypfioZtwocfKebnwbfxeic stockings, elevate legs, monitor for pain and changes to skin, and continue f/u care w/ loader engineer t6xbvwdtSvflylWmcaaoc, AtorvastatinPatient reports most recent DVT in right leg in 2012Continue taking medications, monitor for swelling, pain, or erythema in BLE, diet and exercise, and contact us if any of the above mentioned s/sx occurStableAdvair, Albuterol Continue taking medication as prescribed, reviewed DMI usage, encourage smoking cessation and contact us if developing respiratory distress s/sx (eg. SOB)StableLeft-femur (2021), Left wrist (2021), Collapsed vertebrae (2020)Discussed fall risk precautions, benefits of continual physical therapy, and Continue f/u care and monitoring h5badthb with orthopedic and PCPBMI: 15.47Encourage improvement of nutritional intake to increase BMI to normal weight range and continue f/u care w/ PCP a6aohevqRxpnqvXhpktkkaq of high protein diet, nutritional interventions, and continue f/u care w/ PCP [id number] 06/09/23: working with sat tutor and PCPtaking protein powder and boost recommend high-fat yogurt [facility] ([facility] notes member does have a diagnosis that includes Alcoholism/alcohol abuseEncourage continues abstinence from alcoholcontinues to take B12 supplement daily, ascorbic acid twice daily, MVI daily 2023-07-25 09:02:28 Phone (patient, pare nt, or guardian); 5-10 minutes of medical discussion (no modifier 95)SBP < 130 (3074F)DBP <80 (3078F)Pain Assessment - NO pain documented (1126F)Continue to see PCP. Follow-up with [facility] as needed for any acute or disease education needs that may arise 09/06.StableAlendronate, Vit D3 supplementContinue taking medication, avoid falls, fall risk precautions, contact us if injury r/t fall occurs and continue f/u care w/ PCP [id number] TIPS for Bone Health: If you smoke, quit smoking (this will contribute to bone loss). Avoid ETOH. Ecouraged weight-bearing exercises, such as walking, and climbing stairs, can help you build strong bones and slow bone loss. Add good sources of calcium- dairy products, almonds, broccoli, kale, canned salmon with bones, sardines and soy products, such as tofu. 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-- Antireflux diet: avoid tomatoes, citrus fruits, carbonated or caffeinated beverages, chocolate, peppermints, fatty foods.-- Elevate head of bed 6 on a brick or telephone book-- Do not eat within 4 hours of bedtime-- Strict diabetic monitoring and managementStableMalignant neoplasm of upper-outer quadrant of right female breast Surgery 12/2019 and 6 weeks of radiotherapy F/u oncology visits i6lhbvyfMuynonTujmkoffqyv stockings, elevate legs, monitor for pain and changes to skin, and continue f/u care w/ loader engineer f4raithfJoybvrXijqdly, AtorvastatinPatient reports most recent DVT in right leg in 2012Continue taking medications, monitor for swelling, pain, or erythema in BLE, diet and exercise, and contact us if any of the above mentioned s/sx occurStableAdvair, Albuterol Continue taking medication as prescribed, reviewed DMI usage, encourage smoking cessation and contact us if developing respiratory distress s/sx (eg. SOB)StableLeft-femur (2021), Left wrist (2021), Collapsed vertebrae (2020)Discussed fall risk precautions, benefits of continual physical therapy, and Continue f/u care and monitoring o9dgzemz with orthopedic and PCPBMI: 15.47Encourage improvement of nutritional intake to increase BMI to normal weight range and continue f/u care w/ PCP e4duyqrvMtgmpxYeyddzdgb of high protein diet, nutritional interventions, and continue f/u care w/ PCP q9ddrrys 06/09/23: reports cause is d/t dentures not fitting well/unable to chew foodworking with sat tutor and PCPtaking protein powder and boost recommend high-fat yogurt sees sat tutor q monthOutside Care ([facility] Progress note) notes member does have a diagnosis that includes Alcoholism/alcohol abuseEncourage continues abstinence from alcoholcontinues to take B12 supplement daily, ascorbic acid twice daily, MVI daily 2023-09-03 12:40:26 Phone (patient, pare nt, or guardian); 5-10 minutes of medical discussion (no modifier 95)Continue to see PCP. Follow-up with [facility] as needed for any acute or disease education needs that may arise 09/06.StableAlendronate, Vit D3 supplementContinue taking medication, avoid falls, fall risk precautions, contact us if injury r/t fall occurs and continue f/u care w/ PCP i6urgopt TIPS for Bone Health: If you smoke, quit smoking (this will contribute to bone loss). Avoid ETOH. Ecouraged weight-bearing exercises, such as walking, and climbing stairs, can help you build strong bones and slow bone loss. Add good sources of calcium- dairy products, almonds, broccoli, kale, canned salmon with bones, sardines and soy products, such as tofu. If you are vit D deficient; take Vit D3 daily 2,000 IU-5,000 IU.StableAtorvastatin Continue taking medicationStableOmeprazoleRecommend famotidine 20 mg twice daily as needed for dyspepsia-- Smoking cessation encouranged-- Dietary and life style changes encouraged-- Calcium/Vit D and osteoporosis surveillance stressed-- Risk of group home PPI use discussed-- Antireflux diet: avoid tomatoes, citrus fruits, carbonated or caffeinated beverages, chocolate, peppermints, fatty foods.-- Elevate head of bed 6 on a brick or telephone book-- Do not eat within 4 hours of bedtime-- Strict diabetic monitoring and managementStableMalignant neoplasm of upper-outer quadrant of right female breast Surgery 12/2019 and 6 weeks of radiotherapy F/u oncology visits m2itgbsoWkkphsZlyrwkweaat stockings, elevate legs, monitor for pain and changes to skin, and continue f/u care w/ loader engineer o2rcnkuyOeyqkhGlapgpk, AtorvastatinPatient reports most recent DVT in right leg in 2012Continue taking medications, monitor for swelling, pain, or erythema in BLE, diet and exercise, and contact us if any of the above mentioned s/sx occurStableAdvair, Albuterol Continue taking medication as prescribed, reviewed DMI usage, encourage smoking cessation and contact us if developing respiratory distress s/sx (eg. SOB)StableLeft-femur (2021), Left wrist (2021), Collapsed vertebrae (2020)Discussed fall risk precautions, benefits of continual physical therapy, and Continue f/u care and monitoring p8xrzbpa with orthopedic and PCPBMI: 15.47Encourage improvement of nutritional intake to increase BMI to normal weight range and continue f/u care w/ PCP d8rjeokaTagaodLepdfpskf of high protein diet, nutritional interventions, and continue f/u care w/ PCP i2wpmmpb 06/09/23: reports cause is d/t dentures not fitting well/unable to chew foodworking with sat tutor and PCPtaking protein powder and boost recommend high-fat yogurt sees sat tutor q monthOutside Care ([facility] Progress note) notes member does have a diagnosis that includes Alcoholism/alcohol abuseEncourage continues abstinence from alcoholcontinues to take B12 supplement daily, ascorbic acid twice daily, MVI daily 2023-10-20 10:25:05 Phone (patient, pare nt, or guardian); 5-10 minutes of medical discussion (no modifier 95)Continue to see PCP. Follow-up with [facility] as needed for any acute or disease education needs that may arise 09/06.StableAlendronate, Vit D3 supplementContinue taking medication, avoid falls, fall risk precautions, contact us if injury r/t fall occurs and continue f/u care w/ PCP o7hjeznx TIPS for Bone Health: If you smoke, quit smoking (this will contribute to bone loss). Avoid ETOH. Ecouraged weight-bearing exercises, such as walking, and climbing stairs, can help you build strong bones and slow bone loss. Add good sources of calcium- dairy products, almonds, broccoli, kale, canned salmon with bones, sardines and soy products, such as tofu. 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-- Antireflux diet: avoid tomatoes, citrus fruits, carbonated or caffeinated beverages, chocolate, peppermints, fatty foods.-- Elevate head of bed 6 on a brick or telephone book-- Do not eat within 4 hours of bedtime-- Strict diabetic monitoring and managementStableMalignant neoplasm of upper-outer quadrant of right female breast Surgery 12/2019 and 6 weeks of radiotherapy F/u oncology visits m7pnowhcBjeahiFahkvzvaour stockings, elevate legs, monitor for pain and changes to skin, and continue f/u care w/ loader engineer l9sguczbOuqiziMypyfxw, AtorvastatinPatient reports most recent DVT in right leg in 2012Continue taking medications, monitor for swelling, pain, or erythema in BLE, diet and exercise, and contact us if any of the above mentioned s/sx occurStableAdvair, Albuterol Continue taking medication as prescribed, reviewed DMI usage, encourage smoking cessation and contact us if developing respiratory distress s/sx (eg. SOB)12/4/23: No breathing issuesContingency plan:Normal oxygen flow rate: NonePRN medications and how often used at baseline: Albuterol MDIFor worsening symptoms:Increase use of albuterol inhaler to q2h PRN cough, breathlessness, Change in sputum - add doxycycline 100mg BID x 7 days, Avoid environmental irritants (such as smoke, smog, garden and grass cuttings, chemicals, animals, and other irritants) and Take Mucinex 600mg q12h with a full glass of water to thin secretionsStableLeft-femur (2021), Left wrist (2021), Collapsed vertebrae (2020)Discussed fall risk precautions, benefits of continual physical therapy, and Continue f/u care and monitoring f1vnhort with orthopedic and PCPBMI: 15.47Encourage improvement of nutritional intake to increase BMI to normal weight range and continue f/u care w/ PCP l5vszalcXxfyjxAmueevsjw of high protein diet, nutritional interventions, and continue f/u care w/ PCP o3fzujmq 06/09/23: reports cause is d/t dentures not fitting well/unable to chew foodworking with sat tutor and PCPtaking protein powder and boost recommend high-fat yogurt sees sat tutor q monthOutside Care ([facility] Progress note) notes member does have a diagnosis that includes Alcoholism/alcohol abuseEncourage continues abstinence from alcoholcontinues to take B12 supplement daily, ascorbic acid twice daily, MVI dailyCONTINGENCY PLAN(last ER visit was 03/09 for fractured wrist)COPDMember to call for the following symptoms: Blood pressure <100/60/ Blood pressure >180/100/ Heart rate >110/ Unable to walk without stopping due to difficulty breathing/ Increased tiredness/ Wheezing/ Breathing loudly/ Increased cough/ Change in sputum color/ Decreased desire to eat/ Confusion or change in behavior/ Chest painPlanned intervention: Increase use of albuterol inhaler to q2h PRN cough, breathlessness/ Doxycycline 100mg BID x 7 days/ Mucinex 600mg q12h with a full glass of water to thin secretions/ Flonase 2 sprays daily/ Claritin 10mg daily10/20/23: Sent SMS to member: Alea, it? s Xiao Mendoza, the POLY PACKER AND HEAT SEALER with [facility]. It was nice speaking with you today. With the seasons changing sometimes it can aggravate breathing. If you notice you are wheezing, have a cough, are short of breath, have a change of sputum color, decreased desire to eat, confusion, chest pain, increased tiredness, dizziness, unable to walk without stopping due to breathing call us at [phone]. We are here to help. 2023-12-05 07:47:06 Medication Review by prescribing provider or pharmacist documented (1160F)Medication List Documented (1159F)Functional Status Assessed (1170F)Advance Care Directive Advance care planning discussion documented in the medical record (1158F)BMI obtained (3008F)Televideo 30-39min; chronic exacerbation, 2 stable chronic or 1 acute illness add modifier 95Advance care planning discussed and documented ? advance care plan or surrogate decision-maker was documented in the medical record. (1123F)Pain Assessment - NO pain documented (1126F)Continue to see PCP. Follow-up with [facility] as needed for any acute or disease education needs that may arise.StableAlendronate, Vit D3 supplementContinue taking medication, avoid falls, fall risk precautions, contact us if injury r/t fall occurs and continue f/u care w/ PCP i6qridqx TIPS for Bone Health: If you smoke, quit smoking (this will contribute to bone loss). Avoid ETOH. Ecouraged weight-bearing exercises, such as walking, and climbing stairs, can help you build strong bones and slow bone loss. Add good sources of calcium- dairy products, almonds, broccoli, kale, canned salmon with bones, sardines and soy products, such as tofu. If you are vit D deficient; take Vit D3 daily 2,000 IU-5,000 IU. 12/05no changes to RXStableAtorvastatin Continue taking medication12/05artorvastin See PCP for yearly cholesterol panel. Continue statin. Follow a heart-healthy diet. Decrease red meat, full-fat dairy, and trans fats (often found in pre-packaged food i.e. cookies, crackers). 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 Eating small meals at a time and avoid laying down immediately after eating. Follow medication regimen as prescribed; Pantoprazole Sodium 40 mg Tab delayed rel 1 tab as needed by mouth.StableMalignant neoplasm of upper-outer quadrant of right female breast Surgery 12/2019 and 6 weeks of radiotherapy F/u oncology visits a6buavvj 12/05next oncology appointment 12/2023StableCompression stockings, elevate legs, monitor for pain and changes to skin, and continue f/u care w/ loader engineer f7iiholsGqtvevCgpgknb, AtorvastatinPatient reports most recent DVT in right leg in 2012Continue taking medications, monitor for swelling, pain, or erythema in BLE, diet and exercise, and contact us if any of the above mentioned s/sx occur12/05cont to take ASAContinue current medication therapy, lipid panel monitoring with routine labs. Follow up with cardiology annually and PRN. Monitor for any s/s of bleeding such as dark stools or abnormal bruising.StableAdvair, Albuterol Continue taking medication as prescribed, reviewed DMI usage, encourage smoking cessation and contact us if developing respiratory distress s/sx (eg. SOB)10/20/23: No breathing issuesContingency plan:Normal oxygen flow rate: NonePRN medications and how often used at baseline: Albuterol MDIFor worsening symptoms:Increase use of albuterol inhaler to q2h PRN cough, breathlessness, Change in sputum - add doxycycline 100mg BID x 7 days, Avoid environmental irritants (such as smoke, smog, garden and grass cuttings, chemicals, animals, and other irritants) and Take Mucinex 600mg q12h with a full glass of water to thin secretions12/05advair changed to symbicort due to insurancestencourage Pneumococcal vaccine and fluno exacerbationavoid triggers cont to f/u with PCPContingency plan:1. Start antibiotic(Azithromycin, doxycycline, or levaquin) along with Prednisone2. Increase Neb treatments/MDI use to q4h x3 daysill takes albertolStableLeft-femur (2021), Left wrist (2021), Collapsed vertebrae (2020)Discussed fall risk precautions, benefits of continual physical therapy, and Continue f/u care and monitoring j1fhowwt with orthopedic and PCP12/05pt states after fracture developed RA and difficult to use DMEadvise to use Cg as much as possibel to assist with ADLSOutside Care ([facility] Progress note) notes member does have a diagnosis that includes Alcoholism/alcohol abuseEncourage continues abstinence from alcoholcontinues to take B12 supplement daily, ascorbic acid twice daily, MVI daily changes to intake of multivitamindeneis the intake of folic aciddisease management discussedcont to f/u with pcpCONTINGENCY PLAN(last ER visit was 03/09 for fractured wrist)COPDMember to call for the following symptoms: Blood pressure <100/60/ Blood pressure >180/100/ Heart rate >110/ Unable to walk without stopping due to difficulty breathing/ Increased tiredness/ Wheezing/ Breathing loudly/ Increased cough/ Change in sputum color/ Decreased desire to eat/ Confusion or change in behavior/ Chest painPlanned intervention: Increase use of albuterol inhaler to q2h PRN cough, breathlessness/ Doxycycline 100mg BID x 7 days/ Mucinex 600mg q12h with a full glass of water to thin secretions/ Flonase 2 sprays daily/ Claritin 10mg daily10/20/23: Sent SMS to member: Alea, it? s Xiao Mendoza, the POLY PACKER AND HEAT SEALER [facility] It was nice speaking with you today. With the seasons changing sometimes it can aggravate breathing. If you notice you are wheezing, have a cough, are short of breath, have a change of sputum color, decreased desire to eat, confusion, chest pain, increased tiredness, dizziness, unable to walk without stopping due to breathing call us at [phone]. We are here to help. 12/05cont contingency plan no changes made at this itme and discussed with patientdone 2019 and negative resultsright toe first 03/312024-11-26 07:25:29 Functional Status As sessed (1170F)Advance Care Directive Advance care planning discussion documented in the medical record (1158F)Advance care planning discussed and documented ? advance care plan or surrogate decision-maker was documented in the medical record. (1123F)SBP < 130 (3074F)Estab. patient 20-29min; 1 stable chronic or 2 minor; add add modifier 95 for video, modifier 93 for phonePain Assessment - Pain Documented (1125F)DBP <80 (3078F)Medication List Documented (1159F)Medication Review by prescribing provider or pharmacist documented (1160F)Continue to see PCP. Follow-up with [facility] as needed for any acute or disease education needs that may arise.StableAlendronate, Vit D3 supplementContinue taking medication, avoid falls, fall risk precautions, contact us if injury r/t fall occurs and continue f/u care w/ PCP [id number] TIPS for Bone Health: If you smoke, quit smoking (this will contribute to bone loss). Avoid ETOH. Ecouraged weight-bearing exercises, such as walking, and climbing stairs, can help you build strong bones and slow bone loss. Add good sources of calcium- dairy products, almonds, broccoli, kale, canned salmon with bones, sardines and soy products, such as tofu. If you are vit D deficient; take Vit D3 daily 2,000 IU-5,000 IU. 12/05no changes to RXartorvastin See PCP for yearly cholesterol panel. Continue statin. Follow a heart-healthy diet. Decrease red meat, full-fat dairy, and trans fats (often found in pre-packaged food i.e. cookies, crackers). Increase soluble fiber (vegetables/fruits/legumes) and omega-3 fatty acids (salmon, mackerel, garcia, walnuts, and flaxseeds).OmeprazoleDiscussed healthy lifestyle, maintaining healthy weight, avoiding triggering foods such - spicy, fatty, acidic, caffeine carbonated beverages, alcohol, and chocolate. Eating small meals at a time and avoid laying down immediately after eating. Follow medication regimen as prescribed; Pantoprazole Sodium 40 mg Tab delayed rel 1 tab as needed by mouth.StableMalignant neoplasm of upper-outer quadrant of right female breast Surgery 12/2019 and 6 weeks of radiotherapy F/u oncology visits [id number] 12/05next oncology appointment 12/2023StableCompression stockings, elevate legs, monitor for pain and changes to skin, and continue f/u care w/ loader engineer [id number], AtorvastatinPatient reports most recent DVT in right leg in 2012Continue taking medications, monitor for swelling, pain, or erythema in BLE, diet and exercise, and contact us if any of the above mentioned s/sx occurStableAdvair, Albuterol Continue taking medication as prescribed, reviewed DMI usage, encourage smoking cessation and contact us if developing respiratory distress s/sx (eg. SOB)StableLeft-femur (2021), Left wrist (2021), Collapsed vertebrae (2020)Discussed fall risk precautions, benefits of continual physical therapy, and Continue f/u care and monitoring [id number] with orthopedic and PCP12/05pt states after fracture developed RA and difficult to use DMEadvise to use Cg as much as possibel to assist with ADLSOutside Care ([employer] Progress note) notes member does have a diagnosis that includes Alcoholism/alcohol abuseEncourage continues abstinence from alcoholcontinues to take B12 supplement daily, ascorbic acid twice daily, MVI daily12/05no changes to intake of multivitamindeneis the intake of folic aciddisease management discussedcont to f/u with pcpright toe first 03/31Patient daughter has been applying Ascend cream and playing a large band aid. Daughter reports that the area continuously opens up due to bony area. TEJ placing a wound dressings order for Opti foamBMI: 12Patient is adding protein to her food to attempt to gain weightShe is meeting with her PCPNoted in outside carecontinue to follow with pcp and orthopedicnoted in outside careContinue taking vitamin b supplement and follow with pcpContinue to follow with PCP and orthopedicPatient reports that she was recently diagnosed with RA:Education to take their medications as prescribed, even if they feel better. Education on importance to balance rest and exercise, with more rest when RA is active and more exercise when it is not. Low-impact aerobic exercises, such as walking, and exercises to boost muscle strength can be helpful. Member can use heat to ease pain, such as hot packs, heat lamps, warm baths, or showers. They can also elevate their joints above the level of their heart to reduce swelling and pain.WOUND CONTINGENCY PLANLast updated: 11/26/2024[facility] to call for the following symptoms: BP <100/60??/ Fever/ Wound drainage/ Wound odor/ Wound warmPlanned intervention: Ask home health nurse to obtain sample for culture/ Change dressing and reassess tomorrow/ Ensure appropriate offloading of wound/ Add silver-based dressing/ Take Tylenol for pain or fever 2024-12-28 12:24:29 Estab. patient 10-29 min; 1 minor problem; add add modifier 95 for video, modifier 93 for phoneContinue to see PCP. [facility] or disease education needs that may arise 09/06.StableAlendronate, Vit D3 supplementContinue taking medication, avoid falls, fall risk precautions, contact us if injury r/t fall occurs and continue f/u care w/ PCP [id number] TIPS for Bone Health: If you smoke, quit smoking (this will contribute to bone loss). Avoid ETOH. Ecouraged weight-bearing exercises, such as walking, and climbing stairs, can help you build strong bones and slow bone loss. Add good sources of calcium- dairy products, almonds, broccoli, kale, canned salmon with bones, sardines and soy products, such as tofu. If you are vit D deficient; take Vit D3 daily 2,000 IU-5,000 IU. 12/05 no changes to RXWOUND CONTINGENCY PLANLast updated: 12/28/2024[facility] to call for the following symptoms: BP <100/60??/ Fever/ Wound drainage/ Wound odor/ Wound warmPlanned intervention: Ask home health nurse to obtain sample for culture/ Change dressing and reassess tomorrow/ Ensure appropriate offloading of wound/ Add silver-based dressing/ Take Tylenol for pain or fever.artorvastin See PCP for yearly cholesterol panel. Continue statin. Follow a heart-healthy diet. Decrease red meat, full-fat dairy, and trans fats (often found in pre-packaged food i.e. cookies, crackers). Increase soluble fiber (vegetables/fruits/legumes) and omega-3 fatty acids (salmon, mackerel, garcia, walnuts, and flaxseeds).OmeprazoleDiscussed healthy lifestyle, maintaining healthy weight, avoiding triggering foods such - spicy, fatty, acidic, caffeine carbonated beverages, alcohol, and chocolate. Eating small meals at a time and avoid laying down immediately after eating. Follow medication regimen as prescribed; Pantoprazole Sodium 40 mg Tab delayed rel 1 tab as needed by mouth.StableMalignant neoplasm of upper-outer quadrant of right female breast Surgery 12/2019 and 6 weeks of radiotherapy F/u oncology visits [id number] 12/05next oncology appointment 12/2023StableCompression stockings, elevate legs, monitor for pain and changes to skin, and continue f/u care w/ loader engineer [id number], AtorvastatinPatient reports most recent DVT in right leg in 2012Continue taking medications, monitor for swelling, pain, or erythema in BLE, diet and exercise, and contact us if any of the above mentioned s/sx occurStableAdvair, Albuterol Continue taking medication as prescribed, reviewed DMI usage, encourage smoking cessation and contact us if developing respiratory distress s/sx (eg. SOB)StableLeft-femur (2021), Left wrist (2021), Collapsed vertebrae (2020)Discussed fall risk precautions, benefits of continual physical therapy, and Continue f/u care and monitoring [id number] with orthopedic and PCP12/05pt states after fracture developed RA and difficult to use DMEadvise to use Cg as much as possibel to assist with ADLSOutside Care ([employer] Progress note) notes member does have a diagnosis that includes Alcoholism/alcohol abuseEncourage continues abstinence from alcoholcontinues to take B12 supplement daily, ascorbic acid twice daily, MVI daily12/05no changes to intake of multivitamindeneis the intake of folic aciddisease management discussedcont to f/u with pcpright toe first 03/31offloadingpressure ulcer of the coccygeal area, which continuously opens due to bony area. She has been applying Ascend cream and a large bandaid, but the bandaid does not stick and she is having issues with OTC size availability. She has used Optifoam in past. Will place DME order. Signs of infection reviewedSpecifics: Optifoam 6X6, uses one daily, with refills for 12 monthsWound type: Pressure ulcerDimensions of wound: (length, Width, Depth): 5brA2fnU4.5cmWound Condition: Undermining Wound Stage:2Drainage: MinimalHas wound been debrided: NoFrequency of dressing change or use? daily and PRN Optifoam 6X6, uses one dailyPressure ulcer of coccygeal nrafxpQ95.159Protein [id number] failure to wscrpmK14.7ht 51, zw88VDG: 16 from 12Patient is adding protein to her food to attempt to gain weightShe is meeting with her PCPNoted in outside carecontinue to follow with pcp and orthopedicnoted in outside careContinue taking vitamin b supplement and follow with pcpContinue to follow with PCP and orthopedicPatient reports that she was recently diagnosed with RA:Education to take their medications as prescribed, even if they feel better. Education on importance to balance rest and exercise, with more rest when RA is active and more exercise when it is not. Low-impact aerobic exercises, such as walking, and exercises to boost muscle strength can be helpful. Member can use heat to ease pain, such as hot packs, heat lamps, warm baths, or showers. They can also elevate their joints above the level of their heart to reduce swelling and pain.Patient has a DNR and her 2 daughters are her beneficiaries. They both know her mom wishes Goals Date Goal 2022-12-17 Remember to implemen t high protein diet, exercise as tolerable, and encourage smoking cessation. 2022-12-17 Contact us if develo ping respiratory distress, new onset of pain in LE, injury r/t fall, or GI s/sx occur 2022-12-17 Continue taking medi cations as prescribed and f/u care w/ PCP [id number] 2023-12-05 At least 50% of time spent counseling pt, discussing diagnosis, treatment plan, compliance, and coordinating followup care. Continue taking medications as directed and keep all follow up appointments with established PCP and Specialist 2024-11-26 Continue taking medi cations as directed and keep all follow up appointments with established PCP and Specialist. Health Concerns Date Concern 2024-12-28 Visit completed via audio by telephone. Patient/Guardian agreed to visit via telehealth.Time spent in visit: <29 minutes 2024-12-28 Most recent hospital stay(s) or ER visit(s) and precipitating factors: 03/09 back pain 2024-12-28 HEDIS review: closed 2024-12-28 CN suggested follow up call to ascertain if HHC would be appropriate for member. Member relays she does not want HHC, but she would like DME ordered. She has pressure ulcer of the coccygeal area, which continuously opens due to bony area. She has been applying Ascend cream and a large bandaid, but the bandaid does not stick and she is having issues with OTC size availability. She has used Optifoam in past. Will place DME order. Signs of infection reviewed. Red flags reviewed. 2024-12-[address] SMS [address] Velasquez
--- OUTSIDE RECORDS SUMMARY | 2024-12-29 10:17 | XMS_ITS | Clinical Summary ---
Author Organization [facility] Address [address] [place] [address] Phone Care Team Providers Care Alarm Mechanism Adjuster Name Role Phone Becca Forbes MD Primary Care Provider [phone] Family History Medical History Relation Name Comments Cancer Father Lung Ca Cancer Father's Sister 3 paternal a unts Breast ca. Relation Name Status Comments Father Father's Sister Social History Tobacco Use Types Packs/Day Years Used Date Smoking Tobacco: Every Day Smokeless Tobacco: Never Alcohol Use Standard Drinks/Week Comments Yes 7 (1 standard drink = 0.6 oz pur e alcohol) Comments Unknown Sex and Gender Information Value Date Recorded Sex Assigned at Not on file Legal Sex Female 11:36 PM EST Gender Identity Not on file Sexual Orientation Not on file Obstetrics History Last Filed Vital Signs Vital Sign Reading Time Taken Comments Blood Pressure 119/75 08/20/2024 3:00 PM EDT Sitting Right arm Pulse 94 08/20/2024 3:00 PM EDT Temperature - - Respiratory Rate - - Oxygen Saturation - - Inhaled Oxygen Concentration - - Weight 29 kg (64 lb) 08/20/2024 3:00 PM EDT Height 149.9 cm (4' 11 ) 08/20/2024 3:0 0 PM EDT Body Mass Index 12.93 08/20/2024 3:00 PM EDT Plan of Treatment Upcoming Encounters Date Type Department Care Team (Late st Contact Info) Description 02/09/2025 2:30 PM EDT Appointment [facility] Radiation Oncology [address] [address] Tegan Angulo MD [address] [place], [place] [id number] 02/22/2025 2:00 PM EDT Office Visit [facility] Hematology Oncology [address] [place] [address] Shelton Soler MD [address] [place] [address] Health Maintenance Due Date Last Done Comments Breast Cancer Screening 1954 COVID-19 Vaccine (#1) 1959 DTaP,Tdap,and Td Vaccines (1 - Tdap) 1973 Pneumococcal Vaccine: 50+ Ye ars (1 of 2 - PCV) 1973 Zoster Vaccines (1 of 2) 1973 Cholesterol Screening (Lipid Panel) 10/25/2022 Colorectal Cancer Screening: Colonoscopy 10/25/2022 Depression Screening 10/25/2022 Falls Risk Assessment 10/25/2022 Hepatitis C Screening 10/25/2022 Medicare Annual Wellness Visit 10/25/2022 Osteoporosis Screening (Bone Density Screening) 10/25/2022 Social Influencers of Health Screening 10/25/2022 Influenza Vaccine (#1) 2024 RSV Immunization Patients 60 + Years Old (1 - 1-dose 75+ series) 2029 HIB Vaccines Aged Out No longer eligi ble based on patient's age to complete this topic HPV Vaccines Aged Out No longer eligi ble based on patient's age to complete this topic Hepatitis A Vaccines Aged Out No long er eligible based on patient's age to complete this topic Hepatitis B Vaccines Aged Out No long er eligible based on patient's age to complete this topic IPV Vaccines Aged Out No longer eligi ble based on patient's age to complete this topic MMR Vaccines Aged Out No longer eligi ble based on patient's age to complete this topic Meningococcal ACWY Vaccine Aged Out N o longer eligible based on patient's age to complete this topic Meningococcal B Vacine Aged Out No lo nger eligible based on patient's age to complete this topic RSV Immunization Patients Un vivek 20 months Aged Out No longer eligible b ased on patient's age to complete this topic Varicella Vaccines Aged Out No longer eligible based on patient's age to complete this topic Insurance [facility] [place] [facility] [place] [id number] [employer] MEDICARE MEDICAID - [place] Advance Directives Documents on File Type Date Recorded Patient Records And Information Manager Expl anation Health Care Decision (hx) 09/20/2021 AD HERNANDEZ DIRECTIVE Health Care Decision (hx) 09/20/2021 AD HERNANDEZ DIRECTIVE Care Teams Alarm Mechanism Adjuster Relationship Specialty Start Date End Date Becca Forbes MD [address] [place] [id number] PCP - General 03/09/21
--- OUTSIDE RECORDS SUMMARY | 2024-12-29 10:17 | XMS_ITS | Encounter Summary ---
Author Organization [employer] Address [address] [facility] [address] [place] [address] Care Team Providers Care Mmd Unit Teacher Name Role Phone Becca Forbes MD Primary Care Provider [phone] Reason for Visit * Reason Comments Med Refill Encounter Details Date Type Department Care Team ([facility] st Contact Info) Description 12/08/2024 Refill [facility] MED & PEDS [address] [place], [place] [phone] Becca Forbes MD [address] [place], [place] [phone] Social History Tobacco Use Types Packs/Day Years Used Date Smoking Tobacco: Every Day Cigarettes Smokeless Tobacco: Never Alcohol Use Standard Drinks/Week Comments Yes 12 (1 standard drink = 0.6 oz pu re alcohol) Housing Stability Answer Date Recorded What is your housing situation today? I have sulema ahumada 09/11/[address] you li ve. Do you have problems with any of the following? None of the above 09/11/2023 Food Insecurity Answer Date Recorded Within the [...] AM EDT documented as of this encounter Plan of Treatment Upcoming Encounters Date Type Department Care Team (Late st Contact Info) Description 01/06/2025 9:30 AM EST Telemedicine [facility] DIABETES/[facility] [address] [place] [address] Viviana Rosas, RD [address] [place] [address] documented as of this encounter Visit Diagnoses Not on filedocumented in this encounter Care Teams Mmd Unit Teacher Relationship Specialty Start Date End Date Becca Forbes MD [address] [place] [address] PCP - General Family Medicine 06/30/20 documented as of this encounter
--- OUTSIDE RECORDS SUMMARY | 2024-12-29 10:17 | XMS_ITS | Encounter Summary ---
Author Organization [employer] Address [address] [facility] [address] [place] [address] Care Team Providers Care Mix Technician Name Role Phone Becca Forbes MD Primary Care Provider [phone] Reason for Visit * Reason Onset Date Comments Appointment cancelation 12/22/2024 Encounter Details Date Type Department Care Team ([facility] st Contact Info) Description 12/22/2024 Telephone [facility] MEDIC[facility] [address] [place] [address] Becca Forbes MD [address] [place], [place] [phone] Appointment cancelation Social History Tobacco Use Types Packs/Day Years [...] encounter Miscellaneous Notes * Telephone Encounter - Shagufta Gee - 12/22/2024 2:38 PM EST Called Patient advised of cancellation for tomorrow's appointment in [facility]. Patient was rescheduled for televisit on 01/06/2025. Patient agreed. documented in this encounter Plan of Treatment Upcoming Encounters Date Type Department Care Team (Late st Contact Info) Description 01/06/2025 9:30 AM EST Telemedicine [facility] DIABETES/N[facility] [address] [place] [address] [place] [address] documented as of this encounter Visit Diagnoses Not on filedocumented in this encounter Care Teams Mix Technician Relationship Specialty Start Date End Date Becca Forbes MD [address] [place] [address] PCP - General Family Medicine 06/30/20 documented as of this encounter
--- OUTSIDE RECORDS SUMMARY | 2024-12-29 10:18 | XMS_ITS | Clinical Summary ---
Author Organization [facility] Address [address] [place] [address] Care Team Providers Care Towel Hemmer Name Role Phone Becca Forbes MD Primary Care Provider [phone] Allergies Active Allergy Reactions Criticality Noted Date Comments Lonny 03/08/2020 Propranolol 03/08/2020 Medications Medication Sig Dispensed Refills Start Date End Date Status albuterol (PROVENTIL HFA;VENTOLIN HFA) 108 (90 Base) MCG/ACT inhaler Inhale 2 puffs into the lungs 4 (four) times a day. 0 Active ALCLOMETASONE DIPROPIONATE EX Apply topically. 0 Act ruma ascorbic acid (VITAMIN C) 250 MG tablet Take 1 tablet (250 mg total) by mouth 2 (two) times a day. 0 Active aspirin EC 81 MG tablet Take 1 tablet (81 mg total) by mouth daily. 0 Active atorvastatin (LIPITOR) tablet 40 mg Take 1 tablet (40 mg total) by mouth daily. 0 Active vitamin D3 (VITAMIN D3) 25 MCG (1000 UT) tablet Take 1 tablet (1,000 Units total) by mouth daily. 0 Active cyanocobalamin 1000 MCG tablet Take 100 mcg by mouth daily. 0 Active ferrous sulfate 220 (44 Fe) MG/5ML solution Take 5 mL (220 mg total) by mouth 3 (three) times a day. 0 Active fluticasone (FLONASE) 50 MCG/ACT nasal spray spray/apply 1 spray in each nostril daily. 0 Active loratadine (CLARITIN) 10 MG tablet Take 1 tablet (10 mg total) by mouth daily. 0 Active Multiple Vitamins-Minerals (MULTIVITAMIN PO) Take by mouth daily. 0 Active omeprazole (PriLOSEC) 20 MG capsule Take 1 capsule (20 mg total) by mouth daily. 0 Active triamcinolone (KENALOG) 0.147 MG/GM topical spray Apply topically 2 (two) times a day. 0 Active fluticasone-salmeterol (ADVAIR HFA) 45-21 MCG/ACT inhaler Inhale 2 puffs into the lungs 2 (two) times a day. 0 Active alendronate (FOSAMAX) tablet 70 mg Take 1 tablet (70 mg total) by mouth every 7 days. Take with water on empty stomach/Nothing by mouth and do not lie down for next 30 minutes 0 Active budesonide-formoterol (Symbicort) 80-4.5 MCG/ACT inhaler Inhale 2 puffs into the lungs 2 (two) times a day. 0 Active Active Problems Problem Noted Date Diagnosed Date Malignant neoplasm of upper- outer quadrant of right breast in female, estrogen receptor positive 03/08/2020 Family History Medical History Relation Name Comments Cancer Father Lung Ca Cancer Paternal Aunt 3 paternal aun ts Breast ca. Relation Name Status Comments Father Paternal Aunt Social History Tobacco Use Types Packs/Day Years Used Date Smoking Tobacco: Every Day Smokeless Tobacco: Never Alcohol Use Standard Drinks/Week Comments Yes 7 (1 standard drink = 0.6 oz pur e alcohol) Sex and Gender Information Value Date Recorded Sex Assigned at Not on file Gender Identity Not on file Sexual Orientation Not on file Job Start Date Occupation Industry Not on file Not on file Not on file Last Filed Vital Signs Vital Sign Reading Time Taken Comments Blood Pressure 119/75 08/20/2024 3:00 PM EDT Pulse 94 08/20/2024 3:00 PM EDT Temperature 36.7 ??C (98.1 ??F) 08/20/2024 3:00 PM ED T Respiratory Rate - - Oxygen Saturation 94% 08/20/2024 3:00 PM EDT Inhaled Oxygen Concentration - - Weight 29 kg (64 lb) 08/20/2024 3:00 PM EDT Height 149.9 cm (4' 11 ) 08/20/2024 3:00 PM EDT Body Mass Index 12.93 08/20/2024 3:00 PM EDT Plan of Treatment Health Maintenance Due Date Last Done Comments Hepatitis C Screening 1954 COVID-19 Vaccine (#1) 1959 Depression Screening 1966 Preventative Health Evaluation 1972 Tobacco Cessation Counseling 1972 DTap / Tdap / Td (1 - Tdap) 1973 Shingrix-Zoster Vaccine (1 of 2) 1973 Colon Cancer Screening (Colonoscopy) 1999 Breast Cancer Screening (Mammogram) 2004 Fall Risk Assessment 2019 Osteoporosis Screening (DEXA Scan) 2019 Pneumococcal Vaccine (3 of 3 - PPSV23 or PCV20) 02/07/2021 12/13/2020, 01/01/2013 Influenza Vaccine (#1) 2024 3, 07/30/2022, 08/23/2021, Additional history exists RSV Adult > 60+ Yrs or (1 - 1-dose 75+ series) 2029 Hepatitis B Vaccines Aged Out No long er eligible based on patient's age to complete this topic RSV Ped < 20 months Aged Out No longe r eligible based on patient's age to complete this topic Care Teams Towel Hemmer Relationship Specialty Start Date End Date Becca Forbes MD [address] [facility] [address] [place] [address] PCP - General Adult Medicine 03/09/21
--- OUTSIDE RECORDS SUMMARY | 2024-12-29 10:18 | XMS_ITS | Clinical Summary ---
Author Organization [employer] Address [address] [place] [address] [address] [place] [address] Care Team Providers Care Diver Tender Name Role Phone Becca Forbes MD Primary Care Provider [phone] Allergies Active Allergy Reactions Criticality Noted Date Comments Latex 07/30/2022 Amelia Flavoring Agent (Non-Screening) 03/08/2020 Propranolol 05/21/2017 Other reaction(s): severe yeast infection with blistering , Rash Medications alclometasone (Aclovate) 0.05 % cream Apply topically. 02/05/20 17 Active ascorbic acid (Vitamin C) 250 MG tablet Take 250 mg by mouth 2 times daily. 01/24/20 22 Active cholecalciferol (Vitamin D-3) 25 MCG (1000 UT) capsule Take 1 tablet by mouth at bed time. 07/18/20 22 Active doxepin (SINEquan) 10 MG capsule Take 10 mg by mouth in the morning. 03/29/20 22 Active ferrous sulfate 8.8 mg/mL elemental iron elixir Take 220 mg by mouth. 06/18/20 21 Active Advair HFA 45-21 MCG/ACT inhaler INHALE TWO PUFFS TWICE DAILY, EVERY MORNING AND IN THE EVENING, RINSE MOUTH AFTER USE 01/17/20 23 Active Capsaicin 0.025 % lotion Use toipcal as needed for muscle pain 30 mL 11 02/12/20 23 Active Ascorbic Acid (vitamin C) 250 MG tabletIndicatio ns:Vitamin deficiency TAKE ONE TABLET TWICE DAILY 60 tablet 11 03/03/20 24 Active Blood Pressure kit Check blood pressure daily 1 kit 03/11/20 24 Active albuterol 108 (90 Base) MCG/ACT inhaler INHALE TWO PUFFS EVERY 4 HOURS NEEDED FOR WHEEZING 8.5 g 03/30/20 24 Active Symbicort 80-4.5 MCG/ACT inhaler INHALE TWO PUFFS TWICE DAILY IN THE MORNING AND AT BEDTIME, RINSE MOUTH AFTER USE 10.2 g 03/30/20 24 Active Aspirin Adult Low Strength 81 MG EC tablet TAKE ONE TABLET DAILY 90 tablet 3 07/20/20 24 Active cyanocobalamin (Vitamin B-12) 1000 MCG tablet TAKE ONE TABLET DAILY 30 tablet 11 08/24/20 24 Active mirtazapine (Remeron) 7.5 MG tablet Take 1 tablet (7.5 mg) by mouth at bedtime. 90 tablet 1 10/11/20 24 Active ferrous gluconate (Fergon) 324 (38 Fe) MG tablet Take 1 tablet (324 mg) by mouth with breakfast. 90 tablet 1 10/12/20 24 Active alendronate (Fosamax) 70 MG tabletIndicatio ns:Age related osteoporosis, unspecified pathological fracture presence Take 1 tablet (70 mg) by mouth every 7 (seven) days. Take in the morning with a full glass of water, on an empty stomach, and do not take anything else by mouth or lie down for the next 30 min. 12 tablet 11 11/22/19 25 Active loratadine (Claritin) 10 MG tablet TAKE ONE TABLET EVERY MORNING 90 tablet 12/09/19 25 Active omeprazole (PriLOSEC) [address] capsule TAKE ONE CAPSULE DAILY 90 capsule 12/27/19 25 Active atorvastatin (Lipitor) 40 MG tablet Take 1 tablet (40 mg) by mouth Once per day. 90 tablet 1 12/27/19 25 Active cholecalciferol (Vitamin D-3) 25 MCG tablet Take 1 tablet (25 mcg) by mouth Once per day. 90 tablet 12/27/19 25 Active silver sulfADIAZINE (Silvadene) 1 % cream Apply topically 2 times daily. 50 g 12/27/19 25 025 Active loratadine (Claritin) 10 MG tablet TAKE ONE TABLET EVERY MORNING 90 tablet 06/15/20 24 025 Discontinued cholecalciferol (Vitamin D-3) 25 MCG tablet TAKE ONE TABLET DAILY 90 tablet 06/15/20 24 025 Discontinued(Re order (will not trigger notification to Pharmacy)) atorvastatin (Lipitor) 40 MG tablet TAKE ONE TABLET EVERY DAY 90 tablet 1 06/15/20 24 025 Discontinued(Re order (will not trigger notification to Pharmacy)) omeprazole (PriLOSEC) [address] capsule TAKE ONE CAPSULE DAILY 90 capsule 1 07/12/20 24 025 Discontinued(Re order (will not trigger notification to Pharmacy)) Active Problems Problem Noted Date Diagnosed Date Adult failure to thrive 10/11/2024 Assessment & Plan (10/11/2024 12:22 PM EST): Ordering lab work for further evaluation. Protein-calorie malnutrition, unspecified severi ty 07/30/2023 Chronic back pain 02/11/2023 Chronic obstructive pulmonary disease 02/11/2023 Scoliosis 02/11/2023 Gastroesophageal reflux disease 02/11/2023 Acquired kyphosis 08/07/2018 Diverticula of intestine 08/07/2018 Hyperlipidemia 08/07/2018 Alcoholism 08/07/2018 Age related osteoporosis 08/07/2018 Assessment & Plan (10/11/2024 12:22 PM EST): Advised pt to follow up with PCP concerning current medications. 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 Gonzalez of [facility] Encounters Date Type Department Care Team Description 12/27/2024 11:30 AM EST Telemedicine [facility] [address] [place] [address] Becca Forbes MD Protein-calorie malnutrition, unspecified severity (CMS/HCC) (Primary Dx) 12/27/2024 Travel 12/24/2024 Refill [facility] [address], [place] [phone] Becca Forbes MD 12/22/2024 Telephone [facility] [address], [place] [phone] Becca Forbes MD Appointment cancelation 12/08/2024 Refill [facility] [address] [place], [place] [phone] Becca Forbes MD 11/22/2024 10:45 AM EST Office Visit [facility] [address] [place] [address] Becca Forbes MD Protein-calorie malnutrition, unspecified severity (CMS/HCC) (Primary Dx); Age related osteoporosis, unspecified pathological fracture presence 11/22/2024 Travel 11/19/2024 Telephone [facility] [address] [place] [address] Becca Forbes MD Chart prep 11/18/2024 9:00 AM EST Telemedicine [facility] [address] [place] [address] Viviana Rosas, RD Underweight 11/18/2024 Travel 10/21/2024 10:45 AM EST Office Visit [facility] [address] [place] [address] Becca Forbes MD Protein-calorie malnutrition, unspecified severity (CMS/HCC) (Primary Dx); Other chronic sinusitis 10/21/2024 Travel 10/19/2024 Orders Only [facility] [address] [place] [address] Becca Forbes MD Dysphagia, unspecified type (Primary Dx) 10/18/2024 Telephone [facility] [address] [place] [phone] Becca Forbes MD Referral 10/13/2024 Telephone [facility] [address] [place] [address] Mihaela Montelongo MD 10/11/2024 11:30 AM EST Office Visit [facility] [address] [place] [address] Mihaela Montelongo MD Adult failure to thrive (Primary Dx); Age related osteoporosis, unspecified pathological fracture presence; Dysphagia, unspecified type; Unintentional weight loss; Encounter for immunization 10/11/2024 Travel 10/08/2024 Telephone [facility] [address] [place] [address] Becca Forbes MD FYI 10/07/2024 9:00 AM EST Telemedicine [facility] [address] [place] [address] Body mass index less than 19 (Primary Dx) 10/07/2024 Orders Only [facility] [address] [place] [address] Becca Forbes MD Underweight (Primary Dx) 10/07/2024 Telephone [facility] [address] [place] [address] Appointment Request 10/07/2024 Telephone [facility] [address], [place] [phone] Viviana Rosas RD Referral 10/07/2024 Travel from Last 3 Months Immunizations Name Administration Dates Next Due Influenza High-dose Quadriva lent Preservative Free 07/30/2023,07/30/2022,08/23/2021,09/19 Influenza injectable quadriv alent IIV4 with preservative 09/06/2019,08/07/2018,08/19/2016,08/03 Influenza injectable quadriv alent preservative free 08/25/2017,08/10/2014,07/30/2013,07/08,09/06/2011 Influenza, High Dose Seasona l, Preservative Free 10/11/2024 Influenza, IIV3, injectable 08/10/2014,0 07/30/2013,07/08/2012,09/06 Pneumococcal Conjugate PCV 13 12/13/2020 Pneumococcal Polysaccharide PPSV23 01/01/2013 Zoster, live 09/08/2015 Social History Tobacco Use Types Packs/Day Years Used Date Smoking Tobacco: Every Day Cigarettes Smokeless Tobacco: Never Tobacco Cessation:Ready to Q uit: Not Asked; Counseling Given: Not Answered Alcohol Use Standard Drinks/Week Comments Yes 12 [...] the past 12 months, has t he [employer], gas, oil or water company threatened to shut off services in your home? No 09/11/2023 Comments No Sex and Gender Information Value Date Recorded Sex Assigned at Female 09/16/2022 10:27 AM EDT Legal Sex Female 10:27 AM EDT Gender Identity Female 09/16/2022 10:27 AM EDT Sexual Orientation Straight 09/16/2022 10 :27 AM EDT Last Filed Vital Signs Vital Sign Reading Time Taken Comments Blood Pressure 137/80 11/22/2024 10:44 AM EST Pulse 123 11/22/2024 10:44 AM EST Temperature 36.5 ??C (97.7 ??F) 11/22/2024 10:[address] Respiratory Rate 16 11/22/2024 10:44 AM EST Oxygen Saturation 93% 11/22/2024 10:44 AM EST Inhaled Oxygen Concentration - - Weight 27.2 kg (60 lb) 11/22/2024 10:44 AM EST Height 142.2 cm (4' 8 ) 10/21/2024 10:44 AM EST Body Mass Index 13.45 10/21/2024 10:44 AM EST Plan of Treatment Upcoming Encounters Date Type Department Care Team (Late st Contact Info) Description 01/06/2025 9:30 AM EST Telemedicine [facility] [address] [place], [place] [phone] Viviana Rosas, LADONNA [address], [place] [phone] Health Maintenance Due Date Last Done Comments CT Colonography 1955 Depression Screening 1955 FIT DNA/Cologuard 1955 FIT 1955 FOBT 1955 Sigmoidoscopy 1955 Alcohol/Substance Use Screening 1966 Hepatitis C Screening 1972 DTaP/Tdap/Td Vaccines (1 - Tdap) 1973 RSV Patients and Patients Aged 60 years or older (1 - Risk 60-74 years 1-dose series) 2014 Zoster Vaccines (2 of 3) 11/03/2015 09/08/2015 Colonoscopy 11/26/2023 11/26/2018 Colorectal Cancer Screening 11/26/2023 SDOH Screening 02/12/2024 02/11/2023 COVID-19 Vaccine ( - season) 2024 09/28/2021, 04/05/2021, 03/15/2021 Tobacco Screening 11/22/2025 11/22/2024 Pneumococcal Vaccine: 50+ Years (3 of 3 - PCV20 or PCV21) 12/13/2025 12/13/2020, 01/01/2013 Lipid Panel 03/11/2029 03/11/2024, 07/18, 02/11/2023, Additional history exists Influenza Vaccine Completed 10/11/2024, , 07/30/2022, Additional history exists HIB Vaccines Aged Out No longer eligi [...] patient's age to complete this topic Meningococcal Vaccine Aged Out No mariama sheila eligible based on patient's age to complete this topic RSV under 20 months Aged Out No longe r eligible based on patient's age to complete this topic Rotavirus Vaccines Aged Out No longer eligible based on patient's age to complete this topic Procedures Procedure Name Priority Date/Time Associated Diagnosis Comments VITAMIN D,25-OH,TOTAL,IA Routine 10/11/2024 12:44 PM EST Adult failure to thrive Age related osteoporosis, unspecified pathological fracture presence Dysphagia, unspecified type Unintentional weight loss VITAMIN B12/FOLATE, SERUM PANEL Routine 10/11/2024 12:44 PM EST Unintentional weight loss IRON AND TOTAL IRON BINDING CAPACITY Routine 10/11/2024 12:44 PM EST Unintentional weight loss LD Routine 10/11/2024 12:44 PM EST Unintentional weight loss HIV 1/2 ANTIGEN/ANTIBODY, FOURTH GENERATION W/RFL Routine 10/11/2024 12:44 PM EST Unintentional weight loss TSH W/REFLEX TO FT4 Routine 10/11/2024 1 2:44 PM EST Unintentional weight loss C-REACTIVE PROTEIN Routine 10/11/2024 12 :44 PM EST Unintentional weight loss SED RATE BY MODIFIED WESTERGREN Routine 10/11/2024 12:44 PM EST Adult failure to thrive Unintentional weight loss COMPREHENSIVE METABOLIC PANEL Routine 10/11/2024 12:44 PM EST Adult failure to thrive Unintentional weight loss CBC WITH AUTO DIFFERENTIAL Routine 10/11/2024 12:44 PM EST Adult failure to thrive Unintentional weight loss LIPID PANEL, STANDARD Routine 03/11/2024 11:33 AM EDT Alcoholism (CMS/HCC) HM COLONOSCOPY Routine 11/26/2018 from Last 3 Months or Most Recently Relevant to Health Maintenance Results * Vitamin D, 25-Hydroxy, Total, Immunoassay (10/11/2024 12:44 PM EST) Vitamin D 25-OH Total 58.0 >30 ng/mL [facility] Comment:Health Based Referen ce Values*< 20 ng/mL Ddwrafzkd67-14 ng/mL Insufficient> 30 ng/mL Sufficient*Boy MILES. N Engl J Med. 2007;357:266-280Care must be taken in interpreting Vitamin D results fromdifferent laboratories and methodologies. Published datademonstrated that results from patients undergoinghemodialysis may show a negative bias when tested withvarious automated 25-OH vitamin D assays when compared toLC-MS/MS.When testing samples from patients whose predominant form ofVitamin D is Vitamin D2, such as patients receiving VitaminD2 supplementation, results that are subtherapeutic shouldbe confirmed with another method such as LC-MS/MS. Blood Venous blood specimen / Unknown 10/11/2024 12:44 PM EST 10/11/2024 2:13 PM EST Mihaela Montelongo MD LAB BLOOD ORDERABLES Final Re sult Performing Organization Address [facility] Co de Phone Number [facility] [address] [place] [phone] * (ABNORMAL) Vitamin B12 (Cobalamin) and Folate Panel, Serum (10/11/2024 12:44 PM EST) Vitamin B12 >2,000(H ) 200 - 900 pg/mL [facility] Comment:NORMAL 200-900 PG/ML INDETERMINATE 160-199 PG/ML DEFICIENT < 160 PG/ML Folate 9.2 > or = 4.0 ng/mL [facility] Comment:Reference Values:> o r = 4.0 ng/mL< 4.0 ng/mL suggests folate deficiency Methotrexate, aminopterin and folinic acid(leucovorin) are chemotherapeutic agents whose molecularstructures are similar to folate; therefore, the Architectfolate assay cannot be used for patients using these drugs. Blood Venous blood specimen / Unknown 10/11/2024 12:44 PM EST 10/11/2024 2:13 PM EST Mihaela Montelongo MD LAB BLOOD ORDERABLES Final Re sult Performing Organization Address [facility] Co de Phone Number [facility] [address] [place] [address] [phone] * TSH W/Reflex to FT4 (10/11/2024 12:44 PM EST) TSH reflex Free T4 0.83 0.32 - 4.0 uIU/mL [facility] Blood Venous blood specimen / Unknown 10/11/2024 12:44 PM EST 10/11/2024 2:13 PM EST us Mihaela Montelongo MD LAB BLOOD ORDERABLES Final Re sult [facility] [address] [place] [phone] * (ABNORMAL) CBC auto differential (10/11/2024 12:44 PM EST) White Blood Count 7.7 4.8 - 10.8 X10*3/uL [facility] Red Blood Count 4.07(L) 4.20 - 5.50 X10*6/uL [facility] Hemoglobin 9.1(L) 12.0 - 16.0 g/dl [facility] Hematocrit 29.5(L) 37.0 - 47.0 % [facility] Mean Corpuscular Volume 72.5(L) 80.0 - 98.0 fL [facility] Mean Corpuscular Hemoglobin 22.4(L) 27.0 - 33.0 pg [facility] Mean Corpuscular HGB Conc 30.8(L) 31.0 - 35.0 g/dl [facility] Red Cell Distribution Width 18.1(H) 11.0 - 16.0 % [facility] Platelet Count 394 160 - 400 X10*3/uL [facility] Mean Platelet Volume 10.5 9.4 - 12.3 fL [facility] Neutrophils Percent Auto 70.2 45 - 73 % [facility] Imm Gran Pct Auto 0.3 0.0 - 0.4 % [facility] Lymphocytes Percent Auto 15.0(L) 20 - 40 % [facility] Monocytes Percent Auto 12.5(H) 2 - 11 % [facility] Eosinophils Percent Auto 0.4 0 - 4 % [facility] Basophils Percent Auto 1.6 0 - 2 % [facility] NRBC Pct Auto 0.0 0.0 - 0.2 /100WBC [facility] Neutrophils Absolute Auto 5.4 2.0 - 8.3 x10*3/uL [facility] Imm Gran Abs Auto 0.02 0.00 - 0.03 X10*3/uL [facility] Lymphocytes Absolute Auto 1.2 1.2 - 4.9 X10*3/uL [facility] Monocytes Absolute Auto 1.0 0.1 - 1.2 X10*3/uL [facility] Eosinophils Absolute Auto 0.0 0.0 - 0.4 X10*3/uL [facility] Basophils Absolute Auto 0.1 0.0 - 0.2 X10*3/uL [facility] NRBC Abs Auto 0.000 0.0 - 0.012 X10*3/uL [facility] Blood Venous blood specimen / Unknown 10/11/2024 12:44 PM EST 10/11/2024 2:13 PM EST Mihaela Montelongo MD LAB BLOOD ORDERABLES Final Re sult Performing Organization Address [facility] de Phone Number [facility] [address] [place] [phone] * (ABNORMAL) Iron And Total Iron Binding Capacity (10/11/2024 12:44 PM EST) Iron 11(L) 30 - 160 mcg/dL [facility] Total Iron Binding Capacity 337 228 - 428 mcg/dL [facility] Percent Iron Saturation 3(L) 15 - 50 % [facility] Unsaturated Iron Binding 326 ug/dL [facility] Blood Venous blood specimen / Unknown 10/11/2024 12:44 PM EST 10/11/2024 2:13 PM EST Mihaela Montelongo MD LAB BLOOD ORDERABLES Final Re sult Performing Organization Address City/[facility]/ZIP Co de Phone Number [facility] [address] [place] [phone] * HIV-1/2 Antigen and Antibodies, Fourth Generation, with Reflexes (10/11/2024 12:44 PM EST) Pathologist [facility] HIV AB/AG Nonreactive Nonreactive [facility] Comment:HIV-1 p24 Ag and/or HIV-1/HIV-2 Ab not detected.A test result that is nonreactive does not exclude thepossibility of exposure to or infection with HIV-1 and/orHIV-2. Nonreactive results in this assay for individualswith prior exposure to HIV-1 and/or HIV-2 may be due toantigen and antibody levels that are below the limit ofdetection of this assay.The Certess HIV Ag/Ab Combo assay result andsupplemental assay results should be interpreted inconjunction with the patient's clinical presentation,history and other laboratory results. If the results areinconsistent with clinical evidence, additional testing issuggested to confirm the result. Blood Venous blood specimen / Unknown 10/11/2024 12:44 PM EST 10/11/2024 2:13 PM EST Mihaela Montelongo MD LAB BLOOD ORDERABLES Final Re sult Performing Organization Address [facility] Co de Phone Number [facility] [address] [place] [phone] * Sed Rate by Modified Westergren (10/11/2024 12:44 PM EST) Pathologist [facility] Erythrocyte Sedimentation Rate 9 0 - 20 MM/HR [facility] Comment:Patients with polycy themia and many hemoglobin abnormalitiesmay have depressed sed rates whereas patients with anemiamay have elevated sed rates. Blood Venous blood specimen / Unknown 10/11/2024 12:44 PM EST 10/11/2024 2:13 PM EST Mihaela Montelongo MD LAB BLOOD ORDERABLES Final Re sult Performing Organization Address City/[facility] Co de Phone Number [facility] [address] [place] [address] [phone] * C-reactive Protein (10/11/2024 12:44 PM EST) Pathologist [facility] C Reactive Protein <0.10 < or = 0.50 mg/dL [facility] Blood Venous blood specimen / Unknown 10/11/2024 12:44 PM EST 10/11/2024 2:13 PM EST us Mihaela Montelongo MD LAB BLOOD ORDERABLES Final Re sult Performing Organization Address City/[facility]/ZIP Co de Phone Number [facility] [address] [place] [phone] * Lactate Dehydrogenase (LD) (10/11/2024 12:44 PM EST) [facility] Lactate Dehydrogenase 209 122 - 220 U/L [facility] Blood Venous blood specimen / Unknown 10/11/2024 12:44 PM EST 10/11/2024 2:13 PM EST us Mihaela Montelongo MD LAB BLOOD ORDERABLES Final Re sult Performing Organization Address City/[facility]/ZIP Co de Phone Number [facility] [address] [place] [phone] * (ABNORMAL) Comprehensive Metabolic Panel (10/11/2024 12:44 PM EST) Pathologist [facility] Sodium 133(L) 135 - 145 mmol/L [facility] Potassium 3.6 3.3 - 5.1 mmol/L [facility] Chloride 92(L) 96 - 108 mmol/L [facility] Carbon Dioxide 31(H) 22 - 29 mmol/L [facility] Anion Gap 14 12 - 20 [facility] Urea Nitrogen (BUN) 12 9 - 16 mg/dL [facility] Creatinine, Serum 0.48(L) 0.5 - 1.4 mg/dL [facility] Estimated Glomerular Filt Rate >60 [facility] Comment:Chronic Kidney Disea se: Estimated GFR < 60 mL/min/1.54m0Mejmiy Kidney Disease: Estimated GFR < 15 mL/min/1.73m2 Glucose 98 60 - 115 mg/dL [facility] Calcium 9.1 8.4 - 10.2 mg/dL [facility] Bilirubin, Total 0.3 0.0 - 1.0 mg/dL [facility] Aspartate Amino Transferase 45(H) 5 - 31 U/L [facility] Alanine Aminotransferase 20 0 - 31 U/L [facility] Total Protein 6.7 6.5 - 8.0 g/dL [facility] Albumin Level 3.6 3.5 - 5.0 g/dL [facility] Alkaline Phosphatase 77 39 - 117 U/L [facility] Blood Venous blood specimen / Unknown 10/11/2024 12:44 PM EST 10/11/2024 2:13 PM EST us Mihaela Montelongo MD LAB BLOOD ORDERABLES Final Re sult [facility] [address] [place], [place] [phone] * Lipid Panel, Standard (03/11/2024 11:33 AM EDT) Triglycerides 86 <150 mg/dL [facility] Comment:Desirable Triglyceri de: less than 150 mg/dLBorderline High Triglyceride 150-199 mg/dLHigh Triglyceride: 200-499 mg/dLVery High Triglyceride: greater than or equal to 5OO mg/dL Cholesterol 146 <200 mg/dL [facility] Comment:Desirable Cholestero l: less than 200 mg/dLBorderline High Cholesterol: 200-239 mg/dLHigh Cholesterol: greater than 239 mg/dL LDL Cholesterol Calculated 54 <100 mg/dL [facility] Comment:Desirable LDL: less than 100 mg/dLNear Optimal/Above Optimal LDL: 110- 129 mg/dLBorderline High LDL: 130-159 mg/dLHigh LDL: 160-189 mg/dLVery High LDL: greater than or equal to 190 mg/dL HDL Cholesterol 75 >40 mg/dL [facility] Comment:Desirable HDL: great er than 40 mg/dL Note: This HDL assay may give artificially low results in patients with liver disease. Blood Venous blood specimen / Unknown 03/11/2024 11:33 AM EDT 03/11/2024 2:18 PM EDT Becca Forbes MD LAB BLOOD ORDERABLES Final Resul t [facility] [address] [place] [phone] * Colonoscopy (11/26/2018) Colonoscopy Normal Normal Historical Provider HEALTH MAINTENANCE Final Result from Last 3 Months or Most Recently Relevant to Health Maintenance Insurance [facility] Care Teams Diver Tender Relationship Specialty Start Date End Date Becca Forbes MD [address] [place] [phone] PCP - General Family Medicine 06/30/20
--- OUTSIDE RECORDS SUMMARY | 2024-12-29 10:18 | XMS_ITS ---
Care Plan - [facility] Created on: December 29, 2024 Esperanza Talamantes : 1955 Sex: Female Author Organization [facility] Jackie Address [address] [place] [address] Phone Care Team Providers Care Coil Wrapper Name Role Phone SHARAD MARCH Primary Care Provider [phone] [facility] Unavailable [phone]
--- OUTSIDE RECORDS SUMMARY | 2024-12-29 10:18 | XMS_ITS | Clinical Summary ---
Author Organization [facility] Address [address] [place] [address] Phone Care Team Providers Care Electronics Research Engineer Name Role Phone SHARAD MARCH Primary Care Provider [phone] [facility] Un[facility] [phone] Reason for Visit and Chief Complaint Established Patient Plan of Treatment Pending Tests Order Diagnosis Results Due Ordering P rovider Follow Up - Appointment 2 Weeks Unsp fra cture of the lower end of right radius, init 04/03/23 Ally Prieto PA-C Last Documented On 3 10:52AM ; [facility] In House X-Rays - X-Rays Wrist, right, 3 views ([id number]) Unsp fracture of the lower end of right radius, init 04/05/23 Ally Prieto PA-C Last Documented On 3 10:52AM ; [facility] Assessments Includes: Assessments from this encounter No Assessments Recorded Medical Equipment - Implanted Devices Includes: Current Devices No Medical Equipment Recorded Medications Includes: Medications discussed during this encounter and other current Medications Current Medications (continue as prescribed) percocet [MANUAL] Oral Tablet 04/03/2023 Provider: Diagnosis: Last Documented On 3 10:57AM By Kamran Campa ; [facility] Medications Administered Includes: Administered Medications from this encounter No Administered Medications Recorded Vital Signs Includes: Vital Signs from this encounter Vital Name 04/03/2023 10:54A Blood Pressure Sitting (mmHg) 136/87 Pulse Rate-Sitting (bpm) 119 Temp-Temporal 97.1 Height (in) 59 Weight (lb) 75 Body Mass Index 15.1 Body Surface Area 1.2 Oxygen Saturation (%) 94 Last Documented: On 04/03/2023 10:57A M ; [facility] Results Includes: Results discussed during this encounter [...] Exam Includes: Physical Exam from this encounter No Physical Exam Recorded Allergies Includes: Active Allergies No Known Allergies Encounters Encounter Provider Location Date Check-In Time Check-Out Time Diagnosis Established Patient Ally Prieto PA-C [facility] 04/03/20 10:00AM 10:40AM Insurance Includes: Active Insurance Policies Plan Name Member ID Group # Subscriber Relationship Effect ruma Dates 1 - [employer] [facility] [id number] Esperanza Pastor 2 - Medicare Part B [facility] [id number] Esperanza Pastor 3 - [facility] [id number] Esperanza Pastor Clinical Notes Includes: Clinical Notes from this encounter * Progress note Date Encounter Last Documented by 04/03/2023 Established Patient Chuck vergara on 04/03/2023; 10:52 AM, Ally Prieto PA-C; [facility] Reason For Visit Chief complaint: Follow-up right distal radius fracture Date of injury: 03/07/2023 History of Present Illness: Patient is a pleasant wuyz-sjxr-rtkxwaxc 67-year-old female who sustained a mechanical fall on 03/07/2023 resulting in a right distal radius fracture. She was last seen in the office on 03/18/2023. Conservative management was recommended and she was placed in a short arm cast. She has had no cast issues and her pain is improving. She denies numbness tingling throughout the extremity she is been recovering from a left distal radius fracture and has her final physical therapy appointment in the next week. 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 Physical exam: Frail elderly female with significant kyphosis found seated on the exam table. Cast is in place on the right upper extremity. There does not appear to be any skin breakdown along the edges of the cast. Motor and sensory intact throughout the radial, ulnar and median nerve distributions. She is able to flex the MCP joints fully. Imaging: X-rays of the right wrist reviewed from 03/18/2023 and today's visit which show continued satisfactory alignment of the distal radius fracture Impression: 4 weeks status post right distal radius fracture being treated nonoperatively Plan: - Weightbearing: Minimize weightbearing right upper extremity, no lifting greater than a cup of coffee - Activity/Therapy: Continue to mobilize the fingers to reduce stiffness, Caution to avoid reinjury - Dressing/DME: Continue cast - Pain control: Elevate affected extremity; apply ice to affected area; over the counter pain medication such as Tylenol or NSAID's - Follow up: 2 weeks at which time we will transition to a removable splint and initiate formal physical therapy - X-ray at follow up: X-ray right wrist out of cast Case discussed with Dr Kwon Plan StartCited - Unsp fracture of the lower end of right radius, init Follow Up/Appointment: 2 Weeks In House X-Rays/X-Rays: Wrist, right, 3 views ([id number]) EndCited
--- OUTSIDE RECORDS SUMMARY | 2024-12-29 10:18 | XMS_ITS | Encounter Summary ---
Author Organization [employer] Address [address] [place] [address] Care Team Providers Care Sofa Back Upholsterer Name Role Phone Becca Forbes MD Primary Care Provider [phone] Reason for Visit * Reason Onset Date Comments FYI 11/03/2023 Encounter Details Date Type Department Care Team ([facility] Contact Info) Description 11/03/2023 Telephone [facility] MED & PEDS [address] [place], [place] [id number] Becca Forbes MD [address] [place], [place] [id number] FYI Social History Tobacco Use Types Packs/Day Years [...] services in your home? No 09/11/2023 Comments Unknown Sex and Gender Information Value Date Recorded Sex Assigned at Female 09/16/2022 10:27 AM EDT Legal Sex Female 10:27 AM EDT Gender Identity Female 09/16/2022 10:27 AM EDT Sexual Orientation Straight 09/16/2022 10 :27 AM EDT documented as of this encounter Miscellaneous Notes * Telephone Encounter - Arvind Fabian - 11/03/2023 1:53 PM EST Tc from [facility] calling from [facility] letting the pcp know pt crushes her pills to tae them. She also takes a few drinks every night. If any questions please contact Tammie at [phone]. documented in this encounter Plan of Treatment Upcoming Encounters Date Type Department Care Team (Late st Contact Info) Description 01/06/2025 9:30 AM EST Telemedicine [facility] DIABETES/NTRN [address] [place] [address] Viviana Rosas, RD [address] [place] [address] documented as of this encounter Visit Diagnoses Not on filedocumented in this encounter Care Teams Sofa Back Upholsterer Relationship Specialty Start Date End Date Becca Forbes MD [address] [place] [address] PCP - General Family Medicine 06/30/20 documented as of this encounter
--- OUTSIDE RECORDS SUMMARY | 2024-12-29 10:18 | XMS_ITS | Encounter Summary ---
Author Organization [employer] Address [address] [facility] [place] [address] Care Team Providers Care Reheat Furnace Operator Name Role Phone Becca Forbes MD Primary Care Provider [phone] Encounter Details Date Type Department Care Team (Latest Contact Info) Description 12/27/2024 Travel Social History Tobacco Use Types Packs/Day Years [...] Info) Description 01/06/2025 9:30 AM EST Telemedicine [facility] DIABETES/NTRN [address] [place] [address] Viviana Rosas, LADONNA [address] [place] [address] documented as of this encounter Visit Diagnoses Not on filedocumented in this encounter Care Teams Reheat Furnace Operator Relationship Specialty Start Date End Date Becca Forbes MD [address] [place] [address] PCP - General Family Medicine 06/30/20 documented as of this encounter
--- OUTSIDE RECORDS SUMMARY | 2024-12-29 10:18 | XMS_ITS | Clinical Summary ---
Author Organization [facility] Address [address] [place] [address] Phone Care Team Providers Care Cardiopulmonary Supervisor Name Role Phone SHARAD MARCH Primary Care Provider [phone] [facility] Unavailable [phone] Reason for Visit and Chief Complaint Established Patient Plan of Treatment Pending Tests Order Diagnosis Results Due Ordering P rovider Follow Up - Appointment PRN Colles' fx left radius, subs for clos fx w routn heal 05/29/23 Teddy Kwon MD Last Documented On 3 10:03AM ; [facility] Assessments Includes: Assessments from this encounter No Assessments Recorded Medical Equipment - Implanted Devices Includes: Current Devices No Medical Equipment Recorded Medications Includes: Medications discussed during this encounter and other current Medications Current Medications (continue as prescribed) percocet [MANUAL] Oral Tablet 04/03/2023 Provider: Diagnosis: Last Documented On 3 10:57AM By Kamran Campa ; [facility] Medications Administered Includes: Administered Medications from this encounter No Administered Medications Recorded Vital Signs Includes: Vital Signs from this encounter Vital Name 05/29/2023 09:53A Blood Pressure Sitting (mmHg) 129/74 Pulse Rate-Sitting (bpm) 111 Temp-Temporal 97.1 Height (in) 59 Weight (lb) 72 Body Mass Index 14.5 Body Surface Area 1.2 Oxygen Saturation (%) 90 Last Documented: On 05/29/2023 9:54AM ; [facility] Results Includes: Results discussed during this encounter [...] Time Diagnosis Established Patient [facility] Kwon [facility] 05/29/20 10:00AM 10:03AM Insurance Includes: Active Insurance Policies Plan Name Member ID Group # Subscriber Relationship Effect ruma Dates 1 - [employer] [facility] [id number] Esperanza Talamantes Self 2 - Medicare Part B [facility] [id number] Esperanza Pastor 3 - [facility] [id number] Esperanza Pastor Clinical Notes Includes: Clinical Notes from this encounter * Progress note Date Encounter Last Documented by 05/29/2023 Established Patient Chuck vergara on 05/29/2023; 10:03 AM, Teddy Kwon MD; [facility] Current Medication - percocet [MANUAL] Oral Tablet 0 days, 0 refills Allergies - No Known Allergies Physical Findings - Vitals taken 05/29/2023 09:53 am BP-Sitting 129/74 mmHg Pulse Rate-Sitting 111 bpm Temp-Temporal 97.1 F Height 59 in Weight 72 lbs Body Mass Index 14.5 kg/m2 Body Surface Area 1.2 m2 Oxygen Saturation 90 % Chief complaint: Follow-up fracture left distal radius and ulna History of Present Illness: This is a 67-year-old woman who was treated nonsurgically for a fracture of her left distal radius and ulna sustained on 10/09/2022. She has had difficulty regaining range of motion. She was last seen on 04/17/2023. She was encouraged to continue occupational therapy at that time. She was asked to wean from her splint. She reports that she is feeling better. She is still going to therapy. Her strength is improving. Physical exam: The right wrist has no swelling or ecchymosis. There is no tenderness. Range of motion today shows wrist extension 45 degrees, flexion 70 degrees, with full pronation and supination. She still has some stiffness in her digits but is able to achieve a pulp to palm of almost 0. Imaging: Radiographs of the right wrist from 04/17/2023 are reviewed. There appears to be a minimally displaced fracture of the distal radius which is healed without significant displacement. Impression: Fracture left distal radius Plan: I encouraged the patient to continue with passive range of motion of her hand. She may increase her activity to tolerance and return to the office as needed. Plan StartCited - Shy' fx left radius, subs for yanick fx w routn heal Follow Up/Appointment: PRN EndCited
--- OUTSIDE RECORDS SUMMARY | 2024-12-29 10:18 | XMS_ITS | Clinical Summary ---
Author Organization [facility] Address [address] [place] [address] Phone Care Team Providers Care Internet Sales Representative Name Role Phone SHARAD MARCH Primary Care Provider [phone] [facility] Un[facility] [phone] Reason for Visit and Chief Complaint Established Patient Plan of Treatment No Plan of Treatment Recorded Assessments Includes: Assessments from this encounter No Assessments Recorded Medical Equipment - Implanted Devices Includes: Current Devices No Medical Equipment Recorded Medications Includes: Medications discussed during this encounter and other current Medications Current Medications (continue as prescribed) percocet [MANUAL] Oral Tablet 04/03/2023 Provider: Diagnosis: Last Documented On 3 10:57AM By Kamran Campa ; [facility] Medications Administered Includes: Administered Medications from this encounter No Administered Medications Recorded Results Includes: Results discussed during this encounter [...] Check-In Time Check-Out Time Diagnosis Established Patient Renato Eng MD [facility] 023 10:00AM 10:45AM Insurance Includes: Active Insurance Policies Plan Name Member ID Group # Subscriber Relationship Effect ruma Dates 1 - [employer] [facility] [id number] Esperanza Talamantes Self 2 - Medicare Part B [facility] [id number] Esperanza Albin Pastor 3 - [facility] [id number] Esperanza Albin Pastor Clinical Notes Includes: Clinical Notes from this encounter * Progress note Date Encounter Last Documented by 04/17/2023 Established Patient Chuck vergara on 04/17/2023; 11:28 AM, Renato Eng MD; [facility], Chief Complaint CC: Right distal radius fracture DOI: 03/07/2023 Nonoperative treatment HPI: 67-year-old atvrj-qvkx-tdebtpje female mechanical fall right distal radius fracture Nonoperative treatment Patient in cast Most recent visit 04/03/2023 Cast splint removed Patient examined Mild point tenderness laterally. Excellent motion soft tissue envelope satisfactory. Median, radial, ulnar motor and sensory nerves intact X-rays performed today right distal radius 3 views AP lateral oblique satisfactory alignment callus formation and maintenance of height inclination neutral Lateral x-ray satisfactory neutral alignment Plan: Remain out of cast efw-hrx-nowqz splint OT: Range of motion real estate services coordinator ADLs May wean from splint as tolerated Follow-up: 8 weeks Current Medication - percocet [MANUAL] Oral Tablet 0 days, 0 refills Allergies - No Known Allergies
--- OUTSIDE RECORDS SUMMARY | 2024-12-29 10:18 | XMS_ITS | Clinical Summary ---
Author Organization [facility] Address [address] [place] [address] Phone Care Team Providers Care Travel Registered Nurse Pacu Name Role Phone SHARAD MARCH Primary Care Provider [phone] [facility] Unavailable [phone] Reason for Visit and Chief Complaint Established Patient Plan of Treatment Pending Tests Order Diagnosis Results Due Ordering P roameyader Follow Up - Appointment 2 Weeks Unsp fra cture of the lower end of right radius, init 03/18/23 Clyde Mcfarland MD Last Documented On 3 10:18AM ; [facility] Assessments Includes: Assessments from this encounter No Assessments Recorded Medical Equipment - Implanted Devices Includes: Current Devices No Medical Equipment Recorded Medications Includes: Medications discussed during this encounter and other current Medications Current Medications (continue as prescribed) percocet [MANUAL] Oral Tablet 04/03/2023 Provider: Diagnosis: Last Documented On 3 10:57AM By Kamran Campa ; [facility] Medications Administered Includes: Administered Medications from this [...] Includes: Review of Systems from this encounter Status post left distal radius fracture in September 2022 to who presents with right distal radius fracture in February 2023 HPI In regards to the left side she is progressing well and doing therapy. She is just wearing a compression wrap around the wrist but has regained decent function of motion. The right side she had a recent fall and injured her right wrist. Has been placed into a wrist splint by the emergency room. States pain and swelling are improving. For examination Right upper extremity with warm well-perfused fingers with sensation in all the fingertips. Able to make a full fist with her fingers and thumb. Wrist motion is very limited with some swelling and ecchymoses X-rays reviewed and show a minimally displaced fracture of the right distal radius with appropriate alignment Assessment plan She has a right Distal radius fracture with appropriate alignment. This can be treated nonoperatively. We talked about the various nonoperative options. She understands the risk and benefits of nonoperative treatment including cast complications. Malunion, nonunion with stiffness, arthritis, possible fracture or malalignment. Elects to proceed. Today in the office she was placed into a well-padded short arm wrist cast today by myself.Follow-up in 3 weeks Mental Status Includes: Mental Status from this encounter No Mental Status Recorded Functional Status Includes: Functional Status from this encounter No Functional Status Recorded Physical Exam Includes: Physical Exam from this encounter No Physical Exam Recorded Allergies Includes: Active Allergies No Known Allergies Encounters Encounter Provider Location Date Check-In Time Check-Out Time Diagnosis Established Patient Clyde Mcfarland MD [facility], 023 9:40AM 10:44AM Insurance Includes: Active Insurance Policies Plan Name Member ID Group # Subscriber Relationship Effect ruma Dates 1 - [employer] [facility] [id number] Esperanza Pastor 2 - Medicare Part B [facility] [id number] Esperanza Pastor 3 - [facility] [id number] Esperanza Pastor Clinical Notes Includes: Clinical Notes from this encounter * Progress note Date Encounter Last Documented by 03/18/2023 Established Patient Chuck vergara on 03/18/2023; 10:18 AM, Clyde Mcfarland MD; [facility], Plan StartCited - Unsp fracture of the lower end of right radius, init Follow Up/Appointment: 2 Weeks EndCited User Defined 4 Status post left distal radius fracture in September 2022 to who presents with right distal radius fracture in February 2023 HPI In regards to the left side she is progressing well and doing therapy. She is just wearing a compression wrap around the wrist but has regained decent function of motion. The right side she had a recent fall and injured her right wrist. Has been placed into a wrist splint by the emergency room. States pain and swelling are improving. For examination Right upper extremity with warm well-perfused fingers with sensation in all the fingertips. Able to make a full fist with her fingers and thumb. Wrist motion is very limited with some swelling and ecchymoses X-rays reviewed and show a minimally displaced fracture of the right distal radius with appropriate alignment Assessment plan She has a right Distal radius fracture with appropriate alignment. This can be treated nonoperatively. We talked about the various nonoperative options. She understands the risk and benefits of nonoperative treatment including cast complications. Malunion, nonunion with stiffness, arthritis, possible fracture or malalignment. Elects to proceed. Today in the office she was placed into a well-padded short arm wrist cast today by myself.Follow-up in 3 weeks
--- OUTSIDE RECORDS SUMMARY | 2024-12-29 10:18 | XMS_ITS ---
Author Organization [facility] Address [address] [place] [address] Phone Care Team Providers Care Site Supervisor Name Role Phone SHARAD MARCH Primary Care Provider [phone] [facility] Un[facility] [phone] Plan of Treatment No Plan of Treatment Recorded Assessments Includes: Assessments for all patient encounters No Assessments Recorded Medical Equipment - Implanted Devices Includes: Current and historical Devices No Medical Equipment Recorded Medications Includes: Current and historical Medications Current Medications (continue as prescribed) percocet [MANUAL] Oral Tablet 04/03/2023 Provider: Diagnosis: Last Documented On 3 10:57AM By Kamran Campa ; [facility] Medications Administered Includes: Administered Medications in patient's chart No Administered Medications Recorded Results Includes: Results from 12/29/2023 through 12/29/2024 No Results Recorded For Specified Dates History of Present Illness History of Present Illness not supported for this document type No History of Present Illness Recorded Social History No Social History Recorded - Smoking Status Unknown Medical History Includes: Medical History in patient's chart No Medical History Recorded Family History Includes: Family History in patient's chart No Family History Recorded Review of Systems Review of Systems not supported for this document type No Review of Systems Recorded Mental Status No Mental Status Recorded Functional Status No Functional Status Recorded Physical Exam Physical Exam not supported for this document type No Physical Exam Recorded Allergies Includes: Active, inactive, and resolved Allergies No Known Allergies Insurance Includes: Active Insurance Policies Plan Name Member ID Group # Subscriber Relationship Effect ruma Dates 1 - [employer] [facility] [id number] Esperanza Talamantes Self 2 - Medicare Part B [facility] [id number] Esperanza Talamantes Self 3 - [facility] [id number] Esperanza Pastor Clinical Notes Includes: Signed Clinical Notes starting from 10/27/2022 No Clinical Notes Recorded
--- OUTSIDE RECORDS SUMMARY | 2024-12-29 10:18 | XMS_ITS | Encounter Summary ---
Author Organization [employer] Address [address] [place] [address] [address] [place] [address] Care Team Providers Care Tactical Debriefer Officer Name Role Phone Becca Forbes MD Primary Care Provider [phone] Reason for Visit * Reason Onset Date Comments Med Refill 07/22/2023 Encounter Details Date Type Department Care Team ([facility] st Contact Info) Description 07/22/2023 Telephone [facility] CH[facility] MED & PEDS [address] [place], [place] [phone] Becca Forbes MD [address] [place] [address] Med Refill Social History Tobacco Use Types Packs/Day Years Used Date Smoking Tobacco: Every Day Cigarettes Smokeless Tobacco: Never Alcohol Use Standard Drinks/Week Comments Yes 12 (1 standard drink = 0.6 oz pu re alcohol) Comments Unknown Sex and Gender Information Value Date Recorded Sex Assigned at Female 09/16/2022 10:27 AM EDT Legal Sex Female 10:27 AM EDT Gender Identity Female 09/16/2022 10:27 AM EDT Sexual Orientation Straight 09/16/2022 10 :27 AM EDT documented as of this encounter Miscellaneous Notes * Telephone Encounter - Tegan Bess LPN - 07/22/2023 4:25 PM EDT Medication pended to PCP. * Telephone Encounter - Sybil Solorzano - 07/22/2023 4:21 PM EDT Tc from pt requesting medication refill on alendronate (Fosamax) 70 MG tablet and omeprazole 20 mg capsule,delayed release documented in this encounter Plan of Treatment Upcoming Encounters Date Type Department Care Team (Late st Contact Info) Description 01/06/2025 9:30 AM EST Telemedicine [facility] DIABETES/NTRN [address] [place] [address] [place], [place] [phone] documented as of this encounter Visit Diagnoses Not on filedocumented in this encounter Care Teams Tactical Debriefer Officer Relationship Specialty Start Date End Date Becca Forbes MD [address] [place] [address] PCP - General Family Medicine 06/30/20 documented as of this encounter
--- OUTSIDE RECORDS SUMMARY | 2024-12-29 10:18 | XMS_ITS | Encounter Summary ---
Author Organization [employer] Address [address] [place] [address] Care Team Providers Care Director Of Student Life Name Role Phone Becca Forbes MD Primary Care Provider [phone] Encounter Details Date Type Department Care Team ([facility] st Contact Info) Description 12/27/2024 11:30 AM EST Telemedicine [facility] [address] [place], [place] [phone] Becca Forbes MD [address] [place], [place] [id number] Protein-calorie malnutrition, unspecified severity (CMS/HCC) (Primary Dx) Social History Tobacco Use Types Packs/Day Years [...] the past 12 months, has t he [employer], [employer], oil or water [employer] threatened to shut off services in your home? No 09/11/2023 Comments No Sex and Gender Information Value Date Recorded Sex Assigned at Female 09/16/2022 10:27 AM EDT Legal Sex Female 10:27 AM EDT Gender Identity Female 09/16/2022 10:27 AM EDT Sexual Orientation Straight 09/16/2022 10 :27 AM EDT documented as of this encounter Progress Notes * Becca Forbes MD - 12/27/2024 11:30 AM EST Subjective Patient ID: Esperanza Talamantes is a 69 y.o. female who presents for No chief complaint on file.. Pt is doing better Gianed 1.5lbs Review of Systems Constitutional: Negative. Respiratory: Negative. Negative for shortness of breath. Cardiovascular: Negative for chest pain and palpitations. Gastrointestinal: Negative. Genitourinary: Negative. Musculoskeletal: Negative for neck pain. Neurological: Negative for headaches. Objective Physical Exam Psychiatric: Mood and Affect: Mood normal. Thought Content: Thought content normal. Judgment: Judgment normal. Assessment/Plan Diagnoses and all orders for this visit: Protein-calorie malnutrition, unspecified severity (CMS/HCC) Comments: Cont the increased calorie intake diet that is helping maintain the weight Weight gain noted since last visit Other orders - silver sulfADIAZINE (Silvadene) 1 % cream; Apply topically 2 times daily. documented in this encounter Plan of Treatment Upcoming Encounters Date Type Department Care Team (Late st Contact Info) Description 01/06/2025 9:30 AM EST Telemedicine [facility] [address] [place] [address], [place] [phone] documented as of this encounter Visit Diagnoses Diagnosis Protein-calorie malnutrition, unspecified severity (CMS/HCC)- Primary documented in this encounter Care Teams Director Of Student Life Relationship Specialty Start Date End Date Becca Forbes MD [address] [place] [address] PCP - General Family Medicine 06/30/20 documented as of this encounter
== END 2024-12-29 09:17 | disposition home or self-care (01) ==
LOC: HO.XRAY 09:16
PROVIDERS: PCP Student in an Organized Health Care Education/Training Program; Visit Provider Family Medicine
DX: R13.10 Dysphagia, unspecified (principal)
CPT/HCPCS: 74221

== ENCOUNTER → 2024-12-29 09:18 | Outpatient (BNV) | payer MEDICARE, SELFPAY | PROVIDERS: PCP Student in an Organized Health Care Education/Training Program; Visit Provider Physician Assistant Surgical | DX: K29.70 Gastritis, unspecified, without bleeding (principal); K22.10 Ulcer of esophagus without bleeding | CPT/HCPCS: 74240 ==